=== PATIENT | female | born 1960 | race Caucasian/White ===

== ENCOUNTER → 2016-10-01 | Outpatient (CLI) | payer OTHER ==
[~2016-10-01] MED LIST: ALBUAER2 INH; ATV/1 PO; CALC600T9 PO; CGN1X PO; CLZ100 PO; DSY100 PO; GLC850 PO; LEVO88TA3 PO; LORA-741 PO; MECL1TAB42 PO; MULTTAB58 PO; OXGN; PRT/40 PO; SENNTAB23 PO; SERT-234 PO; SNG10 PO; THIA1TAB11 PO; ZCR40 PO; ZLF/50 PO
[2016-10-01 14:47] LABS: THYROID STIMULATING HORMONE 1.73 uIu/ml (0.300-4.500)
== END | disposition home or self-care (01) ==
LOC: C.LAB1850 13:17
PROVIDERS: ATTEND Internal Medicine Endocrinology, Diabetes & Metabolism
DX: E03.9 Hypothyroidism, unspecified (principal)

== ENCOUNTER → 2016-11-17 | Outpatient (CLI) | payer OTHER ==
[2016-11-17 12:42] LABS: BLOOD UREA NITROGEN 14 mg/dl (7-18); BUN/CREATININE RATIO 14.6 (10-20); CALCIUM 9.3 mg/dl (8.5-10.1); CARBON DIOXIDE 32 mmol/L (21-32); CHLORIDE 95 mmol/L (98-107); CREATININE 0.96 mg/dl (0.60-1.20); GLUCOSE 125 mg/dl (70-99); POTASSIUM 4.1 mmol/L (3.5-5.1); SODIUM 135 mmol/L (136-145)
[2016-11-17 12:54] LABS: ESTIMATED AVERAGE GLUCOSE 154 mg/dl; HA1C FLAG Normal (Normal)
== END | disposition home or self-care (01) ==
LOC: C.LABBFT 09:32
PROVIDERS: ATTEND Internal Medicine Endocrinology, Diabetes & Metabolism
DX: E03.9 Hypothyroidism, unspecified (principal); E11.9 Type 2 diabetes mellitus without complications; R80.9 Proteinuria, unspecified; I10 Essential (primary) hypertension

== ENCOUNTER → 2017-01-19 | Outpatient (CLI) | payer OTHER ==
[~2017-01-19] MED LIST changes: +BENZ-88 PO; -CGN1X PO; +PANT40TA2 PO; -PRT/40 PO
[2017-01-19 13:15] LABS: CHOLESTEROL/HDL RATIO 2.7
== END | disposition home or self-care (01) ==
LOC: C.LABBFT 09:50
PROVIDERS: ATTEND Internal Medicine
DX: E78.5 Hyperlipidemia, unspecified (principal)

== ENCOUNTER → 2017-03-09 | Outpatient (CLI) | payer OTHER ==
[~2017-03-09] MED LIST changes: -BENZ-88 PO; +CGN1X PO; -PANT40TA2 PO; +PRT/40 PO
[2017-03-09 12:50] LABS: THYROID STIMULATING HORMONE 1.2 uIu/ml (0.300-4.500)
[2017-03-09 13:23] LABS: ESTIMATED AVERAGE GLUCOSE 146 mg/dl; HA1C FLAG Normal (Normal)
== END | disposition home or self-care (01) ==
LOC: C.LABBFT 09:22
PROVIDERS: ATTEND Physician Assistant
DX: E11.9 Type 2 diabetes mellitus without complications (principal); E03.9 Hypothyroidism, unspecified

== ENCOUNTER → 2017-06-22 | Outpatient (CLI) | payer OTHER ==
--- NOTE | 2017-06-22 13:24 | DIAGNOSTIC IMAGING REPORT ---
R HIP UNILATERAL 2 VIEWS CLINICAL HISTORY: 56 years-old Female presenting with BILATERAL HIP PAIN. TECHNIQUE: Frontal and frog-leg lateral views of the right hip were obtained. COMPARISON: Correlation made to plain radiographs of the left hip performed the same day and CT from 2014. FINDINGS: No acute fracture or malalignment. Right hip joint congruent. No dense degenerative change. IMPRESSION: No acute osseous injury of the right hip. Electronically signed by: Kal Castro M.D. 06/22/2017 1:22 PM Dictated Date/Time: 06/22/2017 1:20 PM
--- NOTE | 2017-06-22 13:28 | DIAGNOSTIC IMAGING REPORT ---
L HIP UNILATERAL 2 VIEWS CLINICAL HISTORY: 56 years-old Female presenting with BILATERAL HIP PAIN. TECHNIQUE: Frontal and frog-leg lateral views of the left hip were obtained. COMPARISON: Correlation made to plain radiographs of the right hip performed same day and CT from 2014. FINDINGS: Left hip joint congruent. No acute fracture or malalignment. No advanced degenerative change. Regional soft tissues within normal limits. IMPRESSION: No acute osseous injury of the left hip. Electronically signed by: Kal Castro M.D. 06/22/2017 1:27 PM Dictated Date/Time: 06/22/2017 1:26 PM
== END | disposition home or self-care (01) ==
LOC: C.RAD1850 12:50
PROVIDERS: ATTEND Physician Assistant Medical
DX: M25.552 Pain in left hip (principal); M25.551 Pain in right hip

== ENCOUNTER → 2017-06-22 | Outpatient (CLI) | payer OTHER ==
[2017-06-22 12:23] LABS: BASO % 0.3 %; BASO ABS # 0.03 K/uL (0-0.2); COMPLETE YES; EOS % 2.4 %; IG% 0.5 %; LYMPH % 22.9 %; MEAN CORPUSCULAR HEMOGLOBIN 28.7 pg (25-34); MEAN CORPUSCULAR HGB CONC 32.6 g/dl (32-36); MEAN PLATELET VOLUME 9.9 fL (7.4-10.4); MONO % 9.9 %; PLATELET COUNT 314 K/uL (130-400); RED BLOOD COUNT 4.43 M/uL (4.2-5.4)
[2017-06-22 12:40] LABS: ESTIMATED AVERAGE GLUCOSE 163 mg/dl; HA1C FLAG Normal (Normal)
[2017-06-22 13:24] LABS: BLOOD UREA NITROGEN 16 mg/dl (7-18); BUN/CREATININE RATIO 17.6 (10-20); CALCIUM 9.8 mg/dl (8.5-10.1); CARBON DIOXIDE 29 mmol/L (21-32); CHLORIDE 100 mmol/L (98-107); GLUCOSE 139 mg/dl (70-99); POTASSIUM 4.1 mmol/L (3.5-5.1); SODIUM 137 mmol/L (136-145)
== END | disposition home or self-care (01) ==
LOC: C.LAB1850 10:09
PROVIDERS: ATTEND Physician Assistant
DX: E11.9 Type 2 diabetes mellitus without complications (principal); E78.5 Hyperlipidemia, unspecified; E66.01 Morbid (severe) obesity due to excess calories; E87.1 Hypo-osmolality and hyponatremia; I10 Essential (primary) hypertension; F25.9 Schizoaffective disorder, unspecified

== ENCOUNTER → 2017-08-13 | Outpatient (CLI) | payer OTHER ==
[~2017-08-13] MED LIST changes: +BENZ-88 PO; -CGN1X PO; +PANT40TA2 PO; -PRT/40 PO
[2017-08-13 17:28] LABS: CREATININE RANDOM URINE 14.2 mg/dl
[2017-08-13 17:39] LABS: RATIO 81.7 mcg/mg (0-30.0)
== END | disposition home or self-care (01) ==
LOC: C.LABBFT 14:04
PROVIDERS: ATTEND Physician Assistant
DX: E11.9 Type 2 diabetes mellitus without complications (principal)

== ENCOUNTER → 2017-08-17 | Outpatient (CLI) | payer OTHER ==
[2017-08-17 12:35] LABS: THYROID STIMULATING HORMONE 2.1 uIu/ml (0.300-4.500)
== END | disposition home or self-care (01) ==
LOC: C.LABBFT 09:19
PROVIDERS: ATTEND Physician Assistant
DX: E03.9 Hypothyroidism, unspecified (principal)

== ENCOUNTER 2017-08-31 14:58 | Inpatient (IN) | payer OTHER ==
[~2017-08-31] VITALS: Ht 154.9 cm; Wt 129.0 kg
--- NOTE | 2017-08-31 15:51 | EMERGENCY ROOM VISIT NOTE ---
History Report prepared by Carla: Steve Perez Under the Supervision of: Dr. Akin Adam D.O. First contact with patient: 15:15 Chief Complaint: MENTAL HEALTH EVALUATION Stated Complaint: MENTAL ASSESSMENT History of Present Illness The patient is a 57 year old female who presents to the Emergency Room for a mental health evaluation. She is a resident at [facility]. She claims that she "didn't know if he was going to make it through another day there." She believes that everything that she is associated with eventually goes wrong. She then gets extremely upset with herself. The patient reports that she has been having auditory and visual hallucinations that are tormenting her on a daily basis. Endorses left sided abdominal pain and nausea that is intermittent and coincides with her anxiety. Denies dysuria, chest pain, and shortness of breath. She states that she occasionally has a suicidal ideation, but denies any homicidal ideation. Source of History: patient Onset: PV INSTALLER TECH Position: other (Mental Health) Quality: other (Hallucinations) Timing: constant Associated Symptoms: + nausea, + abdominal pain (left sided ), No chest pain , No SOB, No urinary symptoms Note: Pt has suicidal ideation, auditory and visual hallucinations. Denies any homicidal ideation Review of Systems See HPI for pertinent positives & negatives. A total of 10 systems reviewed and were otherwise negative. Past Medical & Surgical Medical Problems: (1) Anxiety (2) GERD (gastroesophageal reflux disease) (3) High cholesterol (4) Paranoid schizophrenia Family History Heart disease Social History Smoking Status: Never Smoker Marital Status: single Housing Status: lives alone Occupation Status: disabled Current/Historical Medications Scheduled Clozapine (Clozapine), 300 MG PO HS Glimepiride (Glimepiride), 1 MG PO DAILY Home O2 Therapy (Oxygen), 2.5 LITERS NA HS Levothyroxine Sodium (Levothyroxine Sodium), 100 MCG PO DAILY Lorazepam (Ativan), 0.5 MG PO UD Lorazepam (Ativan), 1 MG PO HS Montelukast Sod (Montelukast Sodium), 10 MG PO HS Pantoprazole (Pantoprazole Sodium), 40 MG PO DAILY Sertraline HCl (Sertraline HCl), 50 MG PO HS Simvastatin (Simvastatin), 40 MG PO HS Trazodone HCl (Trazodone HCl), 200 MG PO HS Scheduled PRN Meclizine Hcl (Meclizine Hcl), 1 TAB PO TID PRN for DIZZINESS Allergies Coded Allergies: Gardi (Unverified Allergy, Intermediate, GENERALIZED SICKNESS AND BODY ACHES, 08/31/17) Cimetidine (Verified Allergy, Unknown, 08/31/17) Penicillins (Verified Allergy, Unknown, AMOXICILLIN MAKES HER FEEL LIKE SHE'S "GOING OUT OF HER MIND, 08/31/17) Thioridazine (Verified Allergy, Unknown, "GOES OUT OF HER MIND", 08/31/17) Zolpidem (Verified Adverse Reaction, Intermediate, NAUSEA, GENERAL MALAISE , 08/31/17) Physical Exam Vital Signs Date Time Temp Pulse Resp B/P (MAP) Pulse Ox O2 Delivery O2 Flow Rate FiO2 08/31/17 18:21 89 22 118/63 93 Room Air 08/31/17 15:09 36.4 86 18 130/82 94 Room Air Physical Exam GENERAL: Sitting at edge of bed, alert, well appearing, well nourished, no distress, non-toxic EYE EXAM: normal conjunctiva. OROPHARYNX: no exudate, no erythema, lips, buccal mucosa, and tongue normal and mucous membranes are moist NECK: supple, no nuchal rigidity, no adenopathy, non-tender LUNGS: Clear to auscultation. Normal chest wall mechanics HEART: no murmurs, S1 normal and S2 normal ABDOMEN: abdomen soft, non-tender, normo-active bowel sounds, no masses, no rebound or guarding. BACK: Back is symmetrical on inspection and there is no deformity, no midline tenderness, no CVA tenderness. SKIN: no rashes and no bruising UPPER EXTREMITIES: upper extremities are grossly normal. LOWER EXTREMITIES: No pitting edema. NEURO EXAM: Normal sensorium, cranial nerves II-XII grossly intact, normal speech, no gross weakness of arms, no gross weakness of legs. Gross sensation is intact. PSYCH: admits to suicidal ideation with a plan along with auditory and visual hallucinations Medical Decision & Procedures Laboratory Results 08/31/17 15:46 Red Blood Count 4.46, Mean Corpuscular Volume 88.6, Mean Corpuscular Hemoglobin 29.8, Mean Corpuscular Hemoglobin Concent 33.7, Mean Platelet Volume 9.6, Neutrophils (%) (Auto) 64.6, Lymphocytes (%) (Auto) 24.3, Monocytes (%) (Auto) 8.6, Eosinophils (%) (Auto) 2.0, Basophils (%) (Auto) 0.2, Neutrophils # (Auto) 7.06, Lymphocytes # (Auto) 2.65, Monocytes # (Auto) 0.94, Eosinophils # (Auto) 0.22, Basophils # (Auto) 0.02 08/31/17 15:46 Test 08/31/17 15:46 White Blood Count 10.92 K/uL (4.8-10.8) Red Blood Count 4.46 M/uL (4.2-5.4) Hemoglobin 13.3 g/dL (12.0-16.0) Hematocrit 39.5 % (37-47) Mean Corpuscular Volume 88.6 fL (80-100) Mean Corpuscular Hemoglobin 29.8 pg (25-34) Mean Corpuscular Hemoglobin Concent 33.7 g/dl (32-36) Platelet Count 279 K/uL (130-400) Mean Platelet Volume 9.6 fL (7.4-10.4) Neutrophils (%) (Auto) 64.6 % Lymphocytes (%) (Auto) 24.3 % Monocytes (%) (Auto) 8.6 % Eosinophils (%) (Auto) 2.0 % Basophils (%) (Auto) 0.2 % Neutrophils # (Auto) 7.06 K/uL (1.4-6.5) Lymphocytes # (Auto) 2.65 K/uL (1.2-3.4) Monocytes # (Auto) 0.94 K/uL (0.11-0.59) Eosinophils # (Auto) 0.22 K/uL (0-0.5) Basophils # (Auto) 0.02 K/uL (0-0.2) RDW Standard Deviation 45.0 fL (36.4-46.3) RDW Coefficient of Variation 13.9 % (11.5-14.5) Immature Granulocyte % (Auto) 0.3 % Immature Granulocyte # (Auto) 0.03 K/uL (0.00-0.02) Anion Gap 6.0 mmol/L (3-11) Est Creatinine Clear Calc Drug Dose 83.4 ml/min Estimated GFR () 79.0 Estimated GFR (Non- 68.2 BUN/Creatinine Ratio 10.9 (10-20) Calcium Level 9.2 mg/dl (8.5-10.1) Total Bilirubin 0.3 mg/dl (0.2-1) Direct Bilirubin < 0.1 mg/dl (0-0.2) Aspartate Amino Transf (AST/SGOT) 20 U/L (15-37) Alanine Aminotransferase (ALT/SGPT) 28 U/L (12-78) Alkaline Phosphatase 95 U/L (45-117) Total Protein 7.4 gm/dl (6.4-8.2) Albumin 4.0 gm/dl (3.4-5.0) Thyroid Stimulating Hormone (TSH) 2.040 uIu/ml (0.300-4.500) Ethyl Alcohol mg/dL < 3.0 mg/dl (0-3) Laboratory results per my review. ECG Indication: abdominal pain Rate (beats per minute): 85 Rhythm: sinus rhythm Findings: left axis deviation, no ectopy ED Course ED COURSE: Vital signs were reviewed and normal The patients medical record was reviewed The above diagnostic studies were performed and reviewed. ED treatments and interventions as stated above. 1515: The patient was evaluated in room A7. A complete history and physical examination was performed. 1726: I spoke with the caser who will speak to the patient. 1753: I spoke with Kailey, the psych caser, who said that the patient is stable. 1802: The patient will be evaluated by [address] [place] [address] for further management. 1830: Upon reevaluation, the patient is resting. I discussed my findings with the patient and she understands and agrees with the treatment plan. Based on the patients age, coexisting illnesses, exam and lab findings the decision to treat as an inpatient was made. The patient remained stable while under my care. The patient will be transferred to and evaluated by [address] [place] [address] for further management. Medical Decision Differential diagnosis: Etiologies such as mood disorder, infection, hypoglycemia, electrolyte abnormalities, cardiac sources, intracerebral event, toxicologic, neurologic, as well as others were entertained. Patient is a 57-year-old female who is brought in by her vamp maker for making suicidal statements. She doesn't believe that she can live any longer. She does have a plan. Patient has no other complaints. CBC all BMP, LFTs, bilirubin and TSH was unremarkable. Tox and alcohol was negative. UA was negative. Patient was valuated by psychiatry. With the suicidal statements patient was admitted to psychiatry on a 201 with suicidal ideation. Medication Reconcilliation Current Medication List: was personally reviewed by me Blood Pressure Screening Patient's blood pressure: Normal blood pressure Blood pressure disposition: Did not require urgent referral Impression Primary Impression: Acute anxiety Additional Impression: Mood disorder Scribe Attestation The scribe's documentation has been prepared under my direction and personally reviewed by me in its entirety. I confirm that the note above accurately reflects all work, treatment, procedures, and medical decision making performed by me. Departure Information Dispostion Mental Health Acute Care Referrals Porter Nye M.D. (PCP) Patient Instructions [facility] Problem Qualifiers
--- NOTE | 2017-08-31 15:52 | EMERGENCY ROOM VISIT NOTE ---
History First contact with patient: 15:10 Chief Complaint: MENTAL HEALTH EVALUATION Stated Complaint: MENTAL ASSESSMENT History of Present Illness The patient is a 57 year old female with hx of paranoid schizophrenia, anxiety and GERD who presents to the Emergency Room with complaints of RUQ tightness and SI with auditory and visual hallucinations. Was at psych appointment with field case manager and was brought her for concerns of "being afraid to go home" and "not knowing if she was gonna make it". Reports hearing voices telling her to harm herself and seeing things go wrong in her apartment. She has had SI - thinks of taking more ativan. Mood is reported as being up and down (feeling sad and anxious at times). Reports having taken ativan, meclizine and acetaminophen today. Review of Systems see below Constitutional: No fever, No chills Respiratory: No shortness of breath Cardiovascular: No chest pain Abdomen: + pain (RUQ tightness), + nausea Psychiatric: + anxiety, + problem reported (auditory and visual hallucinations) Past Medical/Surgical History Medical Problems: (1) Anxiety (2) GERD (gastroesophageal reflux disease) (3) High cholesterol (4) Paranoid schizophrenia Family History Heart disease Social History Smoking Status: Never Smoker Marital Status: single Housing Status: lives alone Occupation Status: disabled Current/Historical Medications Scheduled Clozapine (Clozapine), 300 MG PO HS Glimepiride (Glimepiride), 1 MG PO DAILY Levothyroxine Sodium (Levothyroxine Sodium), 100 MCG PO DAILY Lorazepam (Ativan), 0.5 MG PO UD Lorazepam (Ativan), 1 MG PO HS Montelukast Sod (Montelukast Sodium), 10 MG PO HS Pantoprazole (Pantoprazole Sodium), 40 MG PO DAILY Sertraline HCl (Sertraline HCl), 50 MG PO HS Simvastatin (Simvastatin), 40 MG PO HS Trazodone HCl (Trazodone HCl), 200 MG PO HS Scheduled PRN Home O2 Therapy (Oxygen), 2.5 LITERS NA UD PRN for Shortness of Breath Meclizine Hcl (Meclizine Hcl), 1 TAB PO TID PRN for DIZZINESS Physical Exam Vital Signs Date Time Temp Pulse Resp B/P (MAP) Pulse Ox O2 Delivery O2 Flow Rate FiO2 08/31/17 15:09 36.4 86 18 130/82 94 Room Air Physical Exam see below General Appearance: no apparent distress Head: normocephalic, atraumatic Eyes: normal inspection Respiratory/Chest: lungs clear, normal breath sounds Cardiovascular: regular rate, rhythm Abdomen / GI: normal bowel sounds, non tender, soft Extremities: normal inspection, + pertinent finding (no pretibial edema) Neurologic/Psych: alert, oriented x 3, + pertinent finding (disoriented thought process; sad affect) Medical Decision & Procedures Laboratory Results 08/31/17 15:46 Red Blood Count 4.46, Mean Corpuscular Volume 88.6, Mean Corpuscular Hemoglobin 29.8, Mean Corpuscular Hemoglobin Concent 33.7, Mean Platelet Volume 9.6, Neutrophils (%) (Auto) 64.6, Lymphocytes (%) (Auto) 24.3, Monocytes (%) (Auto) 8.6, Eosinophils (%) (Auto) 2.0, Basophils (%) (Auto) 0.2, Neutrophils # (Auto) 7.06, Lymphocytes # (Auto) 2.65, Monocytes # (Auto) 0.94, Eosinophils # (Auto) 0.22, Basophils # (Auto) 0.02 08/31/17 15:46 Test 08/31/17 15:46 White Blood Count 10.92 K/uL (4.8-10.8) Red Blood Count 4.46 M/uL (4.2-5.4) Hemoglobin 13.3 g/dL (12.0-16.0) Hematocrit 39.5 % (37-47) Mean Corpuscular Volume 88.6 fL (80-100) Mean Corpuscular Hemoglobin 29.8 pg (25-34) Mean Corpuscular Hemoglobin Concent 33.7 g/dl (32-36) Platelet Count 279 K/uL (130-400) Mean Platelet Volume 9.6 fL (7.4-10.4) Neutrophils (%) (Auto) 64.6 % Lymphocytes (%) (Auto) 24.3 % Monocytes (%) (Auto) 8.6 % Eosinophils (%) (Auto) 2.0 % Basophils (%) (Auto) 0.2 % Neutrophils # (Auto) 7.06 K/uL (1.4-6.5) Lymphocytes # (Auto) 2.65 K/uL (1.2-3.4) Monocytes # (Auto) 0.94 K/uL (0.11-0.59) Eosinophils # (Auto) 0.22 K/uL (0-0.5) Basophils # (Auto) 0.02 K/uL (0-0.2) RDW Standard Deviation 45.0 fL (36.4-46.3) RDW Coefficient of Variation 13.9 % (11.5-14.5) Immature Granulocyte % (Auto) 0.3 % Immature Granulocyte # (Auto) 0.03 K/uL (0.00-0.02) Anion Gap 6.0 mmol/L (3-11) Est Creatinine Clear Calc Drug Dose 83.4 ml/min Estimated GFR () 79.0 Estimated GFR (Non- 68.2 BUN/Creatinine Ratio 10.9 (10-20) Calcium Level 9.2 mg/dl (8.5-10.1) Total Bilirubin 0.3 mg/dl (0.2-1) Direct Bilirubin < 0.1 mg/dl (0-0.2) Aspartate Amino Transf (AST/SGOT) 20 U/L (15-37) Alanine Aminotransferase (ALT/SGPT) 28 U/L (12-78) Alkaline Phosphatase 95 U/L (45-117) Total Protein 7.4 gm/dl (6.4-8.2) Albumin 4.0 gm/dl (3.4-5.0) Thyroid Stimulating Hormone (TSH) 2.040 uIu/ml (0.300-4.500) Ethyl Alcohol mg/dL < 3.0 mg/dl (0-3) ED Course -EKG: NSR with L axis deviation -CMP wnl -CBC with very mild WBC and L shift -Alcohol level < 3 -TSH wnl (2.040) -BS -Clear form a medical stand point to be admitted to psych unit for SI Medical Decision The patient is a 57 year old female with hx of paranoid schizophrenia, anxiety and GERD who presents to the Emergency Room with complaints of RUQ tightness and SI with auditory and visual hallucinations consistent with likely anxiety vs. paranoia consistent with schizophrenia vs cholecystitis vs. OK. -Work up: EKG, CMP, CBC, BSG, UA, alcohol, Drug screen -Will follow up on lab work and manage as indicated -Consider inpatient psych admission given SI Impression Primary Impression: Anxiety Departure Information Referrals Porter Nye M.D. (PCP) Patient Instructions [facility]
[2017-08-31 15:58] LABS: BASO % 0.2 %; BASO ABS # 0.02 K/uL (0-0.2); COMPLETE YES; HEMATOCRIT 39.5 % (37-47); IG% 0.3 %; LYMPH % 24.3 %; LYMPH ABS # 2.65 K/uL (1.2-3.4); MEAN CELL VOLUME 88.6 fL (80-100); MEAN CORPUSCULAR HEMOGLOBIN 29.8 pg (25-34); MEAN CORPUSCULAR HGB CONC 33.7 g/dl (32-36); MEAN PLATELET VOLUME 9.6 fL (7.4-10.4); MONO % 8.6 %; NEUT % 64.6 %; PLATELET COUNT 279 K/uL (130-400); RED BLOOD COUNT 4.46 M/uL (4.2-5.4); WHITE BLOOD COUNT 10.92 K/uL (4.8-10.8)
[2017-08-31 16:21] LABS: ALT/SGPT 28 U/L (12-78); AST/SGOT 20 U/L (15-37); BLOOD UREA NITROGEN 10 mg/dl (7-18); BUN/CREATININE RATIO 10.9 (10-20); CALCIUM 9.2 mg/dl (8.5-10.1); CARBON DIOXIDE 29 mmol/L (21-32); CHLORIDE 99 mmol/L (98-107); CREATININE 0.92 mg/dl (0.60-1.20); GLUCOSE 102 mg/dl (70-99); POTASSIUM 3.8 mmol/L (3.5-5.1); SODIUM 134 mmol/L (136-145)
[2017-08-31 16:32] LABS: ALKALINE PHOSPHATASE 95 U/L (45-117)
[2017-08-31] MEDS ORDERED: GLIM1TAB2 PO (16:37)
[2017-08-31] MEDS ORDERED: ATV/1 PO (16:37)
[2017-08-31] MEDS ORDERED: LEVO100T7 PO (16:37)
[2017-08-31 18:21] VITALS: O2SAT 93
[2017-08-31] MEDS ORDERED: SODIUM CHLORIDE 0.65% NA SOLN 45 ML (OCEAN) PRN (18:30)
[2017-08-31] MEDS ORDERED: ALUMINUM/MAGNESIUM SUSP 30 ML UDC PO PRN (18:30)
[2017-08-31] MEDS ORDERED: hydrOXYzine HCL 25 MG TAB PO PRN ×2 (18:30)
[2017-08-31] MEDS ORDERED: MECLIZINE HCL 25 MG TAB PO PRN (18:30)
[2017-08-31] MEDS ORDERED: BISMUTH SUBSALICYLATE PER ML OMNICELL CHARGE PO PRN (18:30)
[2017-08-31 19:25] LABS: URINE APPEARANCE CLEAR (CLEAR); URINE BILIRUBIN NEG (NEG); URINE COLOR YELLOW; URINE NITRITE NEG (NEG); URINE SPECIFIC GRAVITY 1.006 (1.000-1.030); UROBILINOGEN NEG (NEG)
[2017-08-31 19:29] LABS: MANUAL MICROSCOPIC REQUIRED? NO; REVIEW REQ? NO
[2017-08-31] MEDS ORDERED: OXGN (19:44)
[2017-08-31 19:48] LABS: BENZODIAZEPINE, URINE NEG (NEG); COCAINE,URINE NEG (NEG); PHENCYCLIDINE, URINE NEG (NEG)
[2017-08-31 19:55] VITALS: BP 118/63; PULSE 89; TEMP 36.4; BMI 53.7
[2017-08-31] MEDS ORDERED: LORAZEPAM 1 MG TAB PO PRN (20:45)
[2017-08-31] MEDS ORDERED: CLOZAPINE 100 MG TAB PO SCH (21:00)
[2017-08-31] MEDS: MONTELUKAST SOD 10 MG TAB PO SCH (21:45)
[2017-08-31] MEDS: LORAZEPAM 1 MG TAB PO SCH (21:45)
[2017-08-31] MEDS: SERTRALINE HCL 50 MG TAB PO SCH (21:45)
[2017-08-31] MEDS: TRAZODONE HCL 100 MG TAB PO SCH (21:45)
[2017-08-31] MEDS: SIMVASTATIN 40 MG TAB PO SCH (21:45)
[2017-09-01 05:54] VITALS: Ht 154.9 cm; Wt 129.0 kg
[2017-09-01 06:45] VITALS: BP_SYST 137; BP_SYST 141; BP_DIAS 83; BP_DIAS 84; PULSE 79; PULSE 98; TEMP 36.8
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
[2017-09-01] MEDS: GLIMEPIRIDE 2 MG TAB PO SCH (08:40)
[2017-09-01] MEDS: PANTOprazole SOD 40 MG TAB PO SCH (08:40)
[2017-09-01] MEDS: LEVOTHYROXINE 100 MCG TAB PO SCH (08:40)
[2017-09-01] MEDS: LORAZEPAM 1 MG TAB PO SCH ×2 (12:00→21:21)
[2017-09-01] MEDS: ACETAMINOPHEN 325 MG TAB PO PRN (21:24)
[2017-09-01] MEDS: CLOZAPINE 100 MG TAB PO SCH (21:26)
[2017-09-01] MEDS: TRAZODONE HCL 100 MG TAB PO SCH (21:27)
[2017-09-01] MEDS: MONTELUKAST SOD 10 MG TAB PO SCH (21:27)
[2017-09-01] MEDS: SIMVASTATIN 40 MG TAB PO SCH (21:28)
[2017-09-01] MEDS: SERTRALINE HCL 50 MG TAB PO SCH (21:28)
[2017-09-02 07:01] VITALS: BP_SYST 121; BP_SYST 137; BP_DIAS 84; BP_DIAS 86; PULSE 81; PULSE 86; TEMP 36.8
[2017-09-02] MEDS: LEVOTHYROXINE 100 MCG TAB PO SCH (07:41)
[2017-09-02] MEDS: ACETAMINOPHEN 325 MG TAB PO PRN (07:44)
[2017-09-02 08:29] LABS: CHOLESTEROL/HDL RATIO 3.6
[2017-09-02 08:36] LABS: ESTIMATED AVERAGE GLUCOSE 160 mg/dl; HA1C FLAG Normal (Normal)
[2017-09-02] MEDS: GLIMEPIRIDE 2 MG TAB PO SCH (08:43)
[2017-09-02] MEDS: PANTOprazole SOD 40 MG TAB PO SCH (08:43)
--- NOTE | 2017-09-02 10:08 | Psychiatric Progress Notes ---
Progress Note Date of Service Sep 02, 2017. Interval History Antonietta Almendarez is a 57-year-old female admitted on Aug 31, 2017 at 18:28 who currently lives in [place] at the [facility], has a long mental health history with a diagnosis of schizophrenia, multiple medical conditions including obesity, diabetes, GERD, hypothyroidism, MANDIE, and HLD, and was admitted voluntarily after she was sent in by her psychiatrist, Dr. Wallace, with suicidal thoughts and a plan to overdose on her lorazepam. Chief Complaint "Well I tell you doctor, it was a little scary when I took that extra 50mg of Clozaril...". Subjective Patient was seen & assessed interval progress reviewed with Nursing. Staff report she asked them to give her as much Ativan as possible. She had urinary incontinence again overnight and required staff assistance to change her clothes and bed linens. She spends most of her time in the dayroom socializing with peers. She was unable to rate her mood, and said it was "all over the place." On assessment today, she states she was afraid to take the higher dose of clozapine, but as soon as she took it, she immediately felt better as the voices were diminished. "If you dare to be yourself, you can achieve greatly, something like that that Cristhian Coffey said, those Alexx's are really smart..." She talks excessively, going from topic to topic. She says "I made Dr. Moore mad at me, I shouldn't have done it, asked for Xanax 1mg, she got upset with me, said I can fall or something." She repeatedly interrupts to say she wants to make sure we have enough time to talk, as she has questions, but then then says "no, you ask your questions." She says she wants "a laxative 2-3 times a day, by [employer], orange flavor." She requires a lot of reassurance , "Am I confusing you?" "Are you mad at me?" She reports ongoing AH, but says they are decreased from admission. "They torment me like they do," but can't give further detail. She feels safe here, denies paranoia. She reports good appetite, is eating 75-100% of each meal. Sleep was "very deep and very extraordinary, actually great, terrific, it was good sound sleep." Mood "it goes up and down, I was in a good mood, I was kidding with everyone." She denies SI, and feels safe here. She did not attend most groups, saying she was worried about her personal hygiene and inability to focus. She did go to [facility]. She set a goal to shower and wash her hair, but hasn't done it yet. She doesn't have regular clothes to wear, as the ones she was wearing had a drawstring. Sleep Information Total Hours of Sleep: 5.25 Meal Information Percent of Breakfast Consumed: 75 Percent of Lunch Consumed: 100 Percent of Dinner Consumed: 100 Mental Status Exam During interview pt is: alert and oriented (x 10/10), cooperative Appearance: disheveled, other (Obese, appears significantly older than stated age, wearing 2 hospital gowns) Eye contact is: fair Motor behavior is: no abnormal motor movements, other (walks with walker, slow) Speech: normal in rate, rhythm & volume (excessive) Affect: depressed, anxious Mood is: other ("all over the place") Thought process: circumstantial, concrete Thought content: reality based without delusions Suicidal thought are: denied Homicidal thoughts are: denied Hallucinations: auditory, visual Cognition: language grossly intact, other (attention impaired) Intelligence estimated to be: below average Insight: impaired Judgement: impaired Summary of Past History Records from [facility] reviewed: Diagnosis is schizoaffective disorder (no type specified). Her most recent appointment was on 08/31/2017, and she reported agitation, shakiness, concerns that she did not look good and is physically sick , and wanted to see her PCP. She was tearful, and expressed paranoid delusions , but denied suicidal and homicidal thoughts. No medication changes were made- she was on lorazepam 1 mg at bedtime, 0.5 mg every morning and noon and once daily as needed, sertraline 50 mg daily at bedtime, and trazodone 200 mg daily at bedtime. She requested Xanax, and admitted that she was confused about her Ativan and had been taking more than she was supposed to. She was advised to follow up in 2 months. Prior to that, she was seen in June, and reported doing well on her current medications. Medication Trials patient poor historian, so list incomplete and mostly from old records: risperidone - caused "water blisters" zolpidem - listed as allergy Elavil - can't recall any details mirtazapine quetiapine clozapine carbamazepine lorazepam [place] - listed as an allergy Mellaril - listed as an allergy Impression 57-year-old single white female with a history of chronic schizophrenia and multiple medical problems who presents with worsening psychosis, mood, and suicidal thoughts with a planned overdose on Ativan. She indicates that she has not had medication adjustments in years, and has been resistant to recommendations to increase her clozapine, but after some discussion is willing to do so. She may also benefit from an increase in her sertraline to target mood. She has been overusing Ativan at home, and we will continue her home dose for now while coordinating care with her outpatient psychiatrist. She was independently but is on a wait list for [facility], and we will contact them to clarify process and when she might be able to move and get a higher level of care. She requires inpatient treatment due to the severity of her symptoms and risk for suicide if discharged. Plan (1) Schizoaffective disorder 09/01 - Continue sertraline 50 mg daily, trazodone 200 mg daily at bedtime, and increase clozapine to 350 mg daily at bedtime to target psychosis. Schedule weekly CBCs with differential. - Check fasting lipid profile and hemoglobin A1c for monitoring on the atypical antipsychotic. - every 15 minute checks for safety, work on healthy coping skills and discharge safety plan, with specific plan to address her access to medications, as she has had thoughts to overdose. - Encourage group attendance and participation. - Coordinate with [facility], as she is on a wait list and would like to move there as soon as possible. She would benefit from the increased support. - Coordinate care with her outpatient providers, including her psychiatrist, therapist, case manager specialist, and family law specialist. 09/02 - Continue clozapine 350mg qhs, sertraline 50mg daily, and trazodone 200 mg daily at bedtime. Reporting mixed mood symptoms. AH improved and consider higher dose of clozapine. - Fasting labs reviewed: Hemoglobin A1c elevated at 7.2 (estimated average glucose of 160) disease, fasting lipid profile notable for elevated triglycerides 283. - Meet with director social service and coordinate with [facility] for discharge planning, as she would like to transition to the personal m[facility]p as soon as possible. - Encourage the patient to attend and participate in groups, and to shower and dress in clean clothes. (2) Anxiety 09/01 - could consider increase in sertraline, but patient has asked mood symptoms, so will hold off on this for now. Continue home dose of lorazepam as prescribed by Dr. Rodrigo mcalughlin (0.5 mg daily at noon, 0.5 mg daily when necessary, and 1 mg daily at bedtime). She reported overusing this medication, so consider the need to taper down on it if this is an ongoing problem. (3) Diabetes Continue home medications, monitor blood sugar, and coordinate care with PCP, Dr. Porter Nye. (4) High cholesterol Continue home medications. (5) GERD (gastroesophageal reflux disease) Continue home medications. (6) Hypothyroidism Continue home dose of levothyroxine. TSH on admission was normal. (7) Sleep apnea Patient refuses to use CPAP, so continue home dose of O2 at night. She will require a private room for oxygen tubing, or could cohabitate with a female patient on oxygen. Discharge / Aftercare Planning Primary Care Physician: Name: Dr Nye Therapist: Name: Radha Owens - [facility] Date of Appointment: Sep 08, 2017 Time of Appointment: 1:00 pm Ditching Machine Operator: Name: Charmaine Jeronimo Visit Code E&M Code: 18490 Inventory Assets Strengths: Supportive family, has outpatient providers, willing for treatment Needs: Increased living supports (personal mcfp), improved compliance with medications and understanding of the need for higher doses of medications to target her symptoms Risk Factors Assessment : Yes /single/: Yes Higher / Fall in social status: No Health problems: Yes Mental Health Diagnoses: Yes Substance use disorders: No Previous attempt: Yes Previous attempt;highly lethal: Yes Family history of suicide: Yes Previous psychiatric stay: Yes Hopelessness: Yes Smoker: No Protective Factors Assessment Jewish beliefs: Yes : No Responsible for young children: No Employed: No Stable relationships: Yes Supportive family: Yes Good rapport with provider: Yes Data Vital Signs Last 24 Hrs: Date Time Temp Pulse Resp B/P (MAP) Pulse Ox O2 Delivery O2 Flow Rate FiO2 09/02/17 07:01 36.8 81 18 137/84 86 121/86 Meds Administered Last 24 Hrs: Meds Administered (Past 24Hrs) Medications (Trade) Dose Ordered Sig/Fadi Route Start Time Stop Time Status Last Admin Dose Admin Acetaminophen (Tylenol Tab) 650 mg Q4H PRN PO 08/31/17 18:30 09/30/17 18:29 09/02/17 07:44 650 MG Clozapine (Clozaril Tab) 300 mg HS PO 08/31/17 21:00 09/01/17 11:29 DC 08/31/17 21:45 300 MG Levothyroxine Sodium (Synthroid Tab) 100 mcg DAILYBB PO 09/01/17 07:00 10/01/17 06:59 09/02/17 07:41 100 MCG Lorazepam (Ativan Tab) 1 mg HS PO 08/31/17 21:00 09/30/17 20:59 09/01/17 21:21 1 MG Montelukast Sodium (Singulair Tab) 10 mg HS PO 08/31/17 21:00 09/30/17 20:59 09/01/17 21:27 10 MG Pantoprazole Sodium (Protonix Tab) 40 mg DAILY PO 09/01/17 09:00 10/01/17 08:59 09/02/17 08:43 40 MG Sertraline HCl (Zoloft Tab) 50 mg HS PO 08/31/17 21:00 09/30/17 20:59 09/01/17 21:28 50 MG Simvastatin (Zocor Tab) 40 mg HS PO 08/31/17 21:00 09/30/17 20:59 09/01/17 21:28 40 MG Trazodone HCl (Desyrel Tab) 200 mg HS PO 08/31/17 21:00 09/30/17 20:59 09/01/17 21:27 200 MG Glimepiride (Amaryl Tab) 1 mg DAILY PO 09/01/17 09:00 10/01/17 08:59 09/02/17 08:43 1 MG Lorazepam (Ativan Tab) 0.5 mg DAILY@1200 PO 09/01/17 12:00 10/01/17 11:59 09/01/17 12:00 0.5 MG Clozapine (Clozaril Tab) 350 mg HS PO 09/01/17 22:00 09/30/17 20:59 09/01/17 21:26 350 MG Lab Results Last 24 Hrs: Last 24 Hours Test 09/01/17 16:54 09/02/17 07:35 Bedside Glucose 117 mg/dl Estimated Average Glucose 160 mg/dl Hemoglobin A1c 7.2 % Triglycerides Level 283 mg/dl Cholesterol Level 148 mg/dl HDL Cholesterol 41 mg/dl LDL Cholesterol, Calculated 50 mg/dl VLDL Cholesterol, Calculated 57 mg/dl Cholesterol/HDL Ratio 3.6
[2017-09-02] MEDS: LORAZEPAM 1 MG TAB PO SCH ×2 (12:12→21:22)
[2017-09-02] MEDS: TRAZODONE HCL 100 MG TAB PO SCH (21:24)
[2017-09-02] MEDS: SIMVASTATIN 40 MG TAB PO SCH (21:24)
[2017-09-02] MEDS: MONTELUKAST SOD 10 MG TAB PO SCH (21:24)
[2017-09-02] MEDS: CLOZAPINE 100 MG TAB PO SCH (21:24)
[2017-09-02] MEDS: SERTRALINE HCL 50 MG TAB PO SCH (21:24)
[2017-09-03 06:57] VITALS: BP 146/98; PULSE 86; PULSE 90; TEMP 36.4
[2017-09-03] MEDS: ACETAMINOPHEN 325 MG TAB PO PRN ×3 (07:10→23:22)
[2017-09-03] MEDS: LEVOTHYROXINE 100 MCG TAB PO SCH (08:44)
[2017-09-03] MEDS: PANTOprazole SOD 40 MG TAB PO SCH (08:44)
[2017-09-03] MEDS: GLIMEPIRIDE 2 MG TAB PO SCH (08:45)
[2017-09-03] MEDS: LORAZEPAM 1 MG TAB PO SCH ×2 (12:45→21:39)
--- NOTE | 2017-09-03 12:58 | Psychiatric Progress Notes ---
Progress Note Date of Service Sep 03, 2017. Interval History Antonietta Almendarez is a 57-year-old female admitted on Aug 31, 2017 at 18:28 who currently lives in [place] at the [facility], has a long mental health history with a diagnosis of schizophrenia, multiple medical conditions including obesity, diabetes, GERD, hypothyroidism, MANDIE, and HLD, and was admitted voluntarily after she was sent in by her psychiatrist, Dr. Wallace, with suicidal thoughts and a plan to overdose on her lorazepam. Chief Complaint "oh I'm real good". Subjective Patient was seen & assessed interval progress reviewed with Treatment Team. - Pt slept well, had meeting with lining caser who states she feels patient is now at baseline - Pt tearful on evening shift while discussing her feelings about not seeing her son Pt was seen today to assess progress since admission. She reports is feeling "real good" and has noticed she has been able to focus much better. She reports the voices have decreased and she "hardly hears them at all now." She states "I have the insight back that God gave me." Pt reports that her "nerves " and "worries" are much improved since being on the unit and she is "thinking so much more like Antonietta - like my family knows me to be." Despite patient's optimism, she remains tangential and disorganized in conversation. She feels like she is doing better, but expresses some concerns with returning to the [facility] as she feels the people she lives with gossip too much. Pt reports she is working hard to "change my attitude because that's the first step to helping me get better." Pt states she was able to shower yesterday and she "had to overcome a lot of fears", but feels good about the achievement. She states she has been sleeping and eating well. Review of Systems Psych: denies symptoms other than stated above Constitutional: denied Cardiovascular: denied GI: denied Neurologic: denied Remainder of 10 body systems also reviewed and denied other than noted above. Sleep Information Total Hours of Sleep: 6.00 Meal Information Percent of Breakfast Consumed: 100 Percent of Lunch Consumed: 75 Percent of Dinner Consumed: 100 Mental Status Exam During interview pt is: alert and oriented (x 10/10), cooperative Appearance: disheveled (wearing 2 hospital gowns), other (Obese, older than stated age) Eye contact is: fair Motor behavior is: no abnormal motor movements, other (using wheeled walker for assistance with mobility) Speech: normal in rate, rhythm & volume (excessive) Affect: blunted, anxious Mood is: other ("good") Thought process: circumstantial (frequently switching between conversation topics, but related in content), concrete Thought content: reality based without delusions Suicidal thought are: denied Homicidal thoughts are: denied Hallucinations: auditory (decreased ), visual (decreased) Cognition: language grossly intact, other (attention impaired) Intelligence estimated to be: below average Insight: impaired Judgement: impaired Summary of Past History Records from [facility] reviewed: Diagnosis is schizoaffective disorder (no type specified). Her most recent appointment was on 08/31/2017, and she reported agitation, shakiness, concerns that she did not look good and is physically sick , and wanted to see her PCP. She was tearful, and expressed paranoid delusions , but denied suicidal and homicidal thoughts. No medication changes were made- she was on lorazepam 1 mg at bedtime, 0.5 mg every morning and noon and once daily as needed, sertraline 50 mg daily at bedtime, and trazodone 200 mg daily at bedtime. She requested Xanax, and admitted that she was confused about her Ativan and had been taking more than she was supposed to. She was advised to follow up in 2 months. Prior to that, she was seen in June, and reported doing well on her current medications. Medication Trials patient poor historian, so list incomplete and mostly from old records: risperidone - caused "water blisters" zolpidem - listed as allergy Elavil - can't recall any details mirtazapine quetiapine clozapine carbamazepine lorazepam [place] - listed as an allergy Mellaril - listed as an allergy Impression 57-year-old single white female with a history of chronic schizophrenia and multiple medical problems who presents with worsening psychosis, mood, and suicidal thoughts with a planned overdose on Ativan. She indicates that she has not had medication adjustments in years, and has been resistant to recommendations to increase her clozapine, but after some discussion is willing to do so. She may also benefit from an increase in her sertraline to target mood. She has been overusing Ativan at home, and we will continue her home dose for now while coordinating care with her outpatient psychiatrist. She was independently but is on a wait list for personal skilled nursing, and we will contact them to clarify process and when she might be able to move and get a higher level of care. She requires inpatient treatment due to the severity of her symptoms and risk for suicide if discharged. Plan (1) Schizoaffective disorder 09/01 - Continue sertraline 50 mg daily, trazodone 200 mg daily at bedtime, and increase clozapine to 350 mg daily at bedtime to target psychosis. Schedule weekly CBCs with differential. - Check fasting lipid profile and hemoglobin A1c for monitoring on the atypical antipsychotic. - every 15 minute checks for safety, work on healthy coping skills and discharge safety plan, with specific plan to address her access to medications, as she has had thoughts to overdose. - Encourage group attendance and participation. - Coordinate with [facility], as she is on a wait list and would like to move there as soon as possible. She would benefit from the increased support. - Coordinate care with her outpatient providers, including her psychiatrist, therapist, lining caser, and mortgage loan specialist. 09/02 - Continue clozapine 350mg qhs, sertraline 50mg daily, and trazodone 200 mg daily at bedtime. Reporting mixed mood symptoms. AH improved and consider higher dose of clozapine. - Fasting labs reviewed: Hemoglobin A1c elevated at 7.2 (estimated average glucose of 160) disease, fasting lipid profile notable for elevated triglycerides 283. - Meet with hospice social worker and coordinate with [facility] for discharge planning, as she would like to transition to the personal skilled nursing as soon as possible. - Encourage the patient to attend and participate in groups, and to shower and dress in clean clothes. 09/03 - Continue clozapine 350mg, sertraline 50mg, and trazodone 200mg. Pt states she has been noticing an improvement in her symptoms since admission and voices have nearly been eliminated. - Pt met with lining caser yesterday who reports pt is nearing baseline. - Continue to encourage participation in groups and activities along with appropriate hygiene and bathing. (2) Anxiety 09/01 - could consider increase in sertraline, but patient has asked mood symptoms, so will hold off on this for now. Continue home dose of lorazepam as prescribed by Dr. Rodrigo mclaughlin (0.5 mg daily at noon, 0.5 mg daily when necessary, and 1 mg daily at bedtime). She reported overusing this medication, so consider the need to taper down on it if this is an ongoing problem. 09/03 - She reports improvement in anxiety today. Continue to monitor as evaluate potential to decrease of dose lorazepam if appropriate and symptoms control is sustained. (3) Diabetes Continue home medications, monitor blood sugar, and coordinate care with PCP, Dr. Porter Nye. (4) High cholesterol Continue home medications. (5) GERD (gastroesophageal reflux disease) Continue home medications. (6) Hypothyroidism Continue home dose of levothyroxine. TSH on admission was normal. (7) Sleep apnea Patient refuses to use CPAP, so continue home dose of O2 at night. She will require a private room for oxygen tubing, or could cohabitate with a female patient on oxygen. Discharge / Aftercare Planning Primary Care Physician: Name: Dr Nye Date of Appointment: Sep 24, 2017 Time of Appointment: 11:30 am Appointment Notes: [address] [place] [address] [address] [place] [id number] Psychiatrist: Name: Dr. Alessandro GONZALEZ Date of Appointment: Sep 14, 2017 Time of Appointment: 10:45 am Appointment Notes: [address] [facility] [place] [id number] Therapist: Name: Radha Woodard Date of Appointment: Sep 08, 2017 Time of Appointment: 1:00 pm Appointment Notes: [address] [facility] [place] [id number] Home And School Visitor: Name: Charmaine Jeronimo or [phone] Time of Appointment: weekly Diagnostic Medical Sonographer: Name: Kimberlyn Torres Appointment Notes: scheduled 6 hours per month Visit Code E&M Code: 97567 Inventory Assets Strengths: Supportive family, has outpatient providers, willing for treatment Needs: Increased living supports (personal skilled nursing), improved compliance with medications and understanding of the need for higher doses of medications to target her symptoms Risk Factors Assessment : Yes /single/: Yes Higher / Fall in social status: No Health problems: Yes Mental Health Diagnoses: Yes Substance use disorders: No Previous attempt: Yes Previous attempt;highly lethal: Yes Family history of suicide: Yes Previous psychiatric stay: Yes Hopelessness: Yes Smoker: No Protective Factors Assessment Quaker beliefs: Yes : No Responsible for young children: No Employed: No Stable relationships: Yes Supportive family: Yes Good rapport with provider: Yes Data Vital Signs Last 24 Hrs: Date Time Temp Pulse Resp B/P (MAP) Pulse Ox O2 Delivery O2 Flow Rate FiO2 09/03/17 06:57 36.4 90 18 146/98 86 Meds Administered Last 24 Hrs: Meds Administered (Past 24Hrs) Medications (Trade) Dose Ordered Sig/Fadi Route Start Time Stop Time Status Last Admin Dose Admin Clozapine (Clozaril Tab) 350 mg HS PO 09/01/17 22:00 09/30/17 20:59 09/02/17 21:24 350 MG Lab Results Last 24 Hrs: Last 24 Hours Test 09/02/17 17:43 09/03/17 07:31 Bedside Glucose 99 mg/dl 175 mg/dl
[2017-09-03] MEDS: SIMVASTATIN 40 MG TAB PO SCH (21:41)
[2017-09-03] MEDS: MONTELUKAST SOD 10 MG TAB PO SCH (21:41)
[2017-09-03] MEDS: TRAZODONE HCL 100 MG TAB PO SCH (21:41)
[2017-09-03] MEDS: CLOZAPINE 100 MG TAB PO SCH (21:41)
[2017-09-03] MEDS: SERTRALINE HCL 50 MG TAB PO SCH (21:41)
[2017-09-04] MEDS: MAGNESIUM HYDROXIDE SUSP 30 ML UDC PO PRN (05:46)
[2017-09-04] MEDS: ACETAMINOPHEN 325 MG TAB PO PRN ×2 (05:56→17:20)
[2017-09-04 07:21] VITALS: BP 138/85; PULSE 87; TEMP 36.7
[2017-09-04] MEDS: LEVOTHYROXINE 100 MCG TAB PO SCH (07:27)
[2017-09-04] MEDS: PANTOprazole SOD 40 MG TAB PO SCH (08:25)
[2017-09-04] MEDS: GLIMEPIRIDE 2 MG TAB PO SCH (08:25)
--- NOTE | 2017-09-04 08:44 | Psychiatric Progress Notes ---
Progress Note Date of Service Sep 04, 2017. Interval History Antonietta Almendarez is a 57-year-old female admitted on Aug 31, 2017 at 18:28 who currently lives in [place] at the [facility], has a long mental health history with a diagnosis of schizophrenia, multiple medical conditions including obesity, diabetes, GERD, hypothyroidism, MANDIE, and HLD, and was admitted voluntarily after she was sent in by her psychiatrist, Dr. Wallace, with suicidal thoughts and a plan to overdose on her lorazepam. Chief Complaint "I'm confused. ". Subjective Patient was seen & assessed interval progress reviewed with Treatment Team. The patient is awake early, talking on the phone. Nursing reports that she is connecting with a manic peer, which is serving to provoke her own tangential conversations. She jumps from topic to topic, frequently stopping to make and observation about my appearance of activities in the dayroom. She starts a conversation about family, wanting to heal them all as she feels that they are not together because of traumatic past experiences. She says yes when asked about hallucinations, but when asked to further explain, she talks about crying in the group room about her common law . In talking about potential discharge, she says "I don't want to be alone for the holidays." but will be ready for discharge the day after Xmas. She continues to complain of pain in her left side, minimally improved with tylenol and would like something stronger. She denies SI/hI, saying that her mood is "real good". Review of Systems Constitutional: No fever, No chills, No sweats, No weight loss, No weakness, No fatigue, No problem reported ENT: No hearing loss, No unusual epistaxis, No nasal symptoms, No sore throat, No tinnitus, No dental problems, No trouble swallowing, No problem reported Respiratory: No cough, No sputum, No wheezing, No shortness of breath, No dyspnea on exertion, No dyspnea at rest, No hemoptysis, No problem reported Cardiovascular: No chest pain, No orthopnea, No PND, No edema, No claudication , No palpitations, No problem reported Abdomen: No pain, No nausea, No vomiting, No diarrhea, No constipation, No GI bleeding, No problem reported Musculoskeletal: + problem reported (left sided pain) Neurologic: No memory loss, No paralysis, No weakness, No numbness/tingling, No vertigo, No balance problems, No problem reported Psychiatric: + anxiety Sleep Information Total Hours of Sleep: 3.25 Meal Information Percent of Breakfast Consumed: 100 Percent of Lunch Consumed: 100 Percent of Dinner Consumed: 100 Mental Status Exam During interview pt is: alert and oriented (x 10/10), cooperative Appearance: disheveled (wearing 2 hospital gowns), other (Obese, older than stated age) Eye contact is: good Motor behavior is: no abnormal motor movements, other (using wheeled walker for assistance with mobility) Speech: normal in rate, rhythm & volume (excessive) Affect: blunted, anxious Mood is: other ("good") Thought process: circumstantial (frequently switching between conversation topics, but related in content), tangential, concrete Thought content: reality based without delusions Suicidal thought are: denied Homicidal thoughts are: denied Hallucinations: auditory (decreased ), visual (decreased) Cognition: language grossly intact, other (attention impaired) Intelligence estimated to be: below average Insight: impaired Judgement: impaired Summary of Past History Records from [facility] reviewed: Diagnosis is schizoaffective disorder (no type specified). Her most recent appointment was on 08/31/2017, and she reported agitation, shakiness, concerns that she did not look good and is physically sick , and wanted to see her PCP. She was tearful, and expressed paranoid delusions , but denied suicidal and homicidal thoughts. No medication changes were made- she was on lorazepam 1 mg at bedtime, 0.5 mg every morning and noon and once daily as needed, sertraline 50 mg daily at bedtime, and trazodone 200 mg daily at bedtime. She requested Xanax, and admitted that she was confused about her Ativan and had been taking more than she was supposed to. She was advised to follow up in 2 months. Prior to that, she was seen in June, and reported doing well on her current medications. Medication Trials patient poor historian, so list incomplete and mostly from old records: risperidone - caused "water blisters" zolpidem - listed as allergy Elavil - can't recall any details mirtazapine quetiapine clozapine carbamazepine lorazepam [place] - listed as an allergy Mellaril - listed as an allergy Impression The patient remains tangential and circumstantial and triggered by a manic peer. ADmits that she doesn't want to be home alone for as and would likely bounce if discharged before. Is benefitting from the socialization and assistance with ADL's. Continue current meds. Social service to explore additional home services to assist with showering. Plan (1) Schizoaffective disorder 09/01 - Continue sertraline 50 mg daily, trazodone 200 mg daily at bedtime, and increase clozapine to 350 mg daily at bedtime to target psychosis. Schedule weekly CBCs with differential. - Check fasting lipid profile and hemoglobin A1c for monitoring on the atypical antipsychotic. - every 15 minute checks for safety, work on healthy coping skills and discharge safety plan, with specific plan to address her access to medications, as she has had thoughts to overdose. - Encourage group attendance and participation. - Coordinate with [facility], as she is on a wait list and would like to move there as soon as possible. She would benefit from the increased support. - Coordinate care with her outpatient providers, including her psychiatrist, therapist, disease case manager, and data capture specialist. 09/02 - Continue clozapine 350mg qhs, sertraline 50mg daily, and trazodone 200 mg daily at bedtime. Reporting mixed mood symptoms. AH improved and consider higher dose of clozapine. - Fasting labs reviewed: Hemoglobin A1c elevated at 7.2 (estimated average glucose of 160) disease, fasting lipid profile notable for elevated triglycerides 283. - Meet with addiction social worker and coordinate with [facility] for discharge planning, as she would like to transition to the personal chcf as soon as possible. - Encourage the patient to attend and participate in groups, and to shower and dress in clean clothes. 09/03 - Continue clozapine 350mg, sertraline 50mg, and trazodone 200mg. Pt states she has been noticing an improvement in her symptoms since admission and voices have nearly been eliminated. - Pt met with disease case manager yesterday who reports pt is nearing baseline. - Continue to encourage participation in groups and activities along with appropriate hygiene and bathing. 09/04 - Continue current meds - Encourage/assist with ADL's as needed (2) Anxiety 09/01 - could consider increase in sertraline, but patient has asked mood symptoms, so will hold off on this for now. Continue home dose of lorazepam as prescribed by Dr. Rodrigo mclaughlin (0.5 mg daily at noon, 0.5 mg daily when necessary, and 1 mg daily at bedtime). She reported overusing this medication, so consider the need to taper down on it if this is an ongoing problem. 09/03 - She reports improvement in anxiety today. Continue to monitor as evaluate potential to decrease of dose lorazepam if appropriate and symptoms control is sustained. (3) Diabetes Continue home medications, monitor blood sugar, and coordinate care with PCP, Dr. Porter Nye. (4) High cholesterol Continue home medications. (5) GERD (gastroesophageal reflux disease) Continue home medications. (6) Hypothyroidism Continue home dose of levothyroxine. TSH on admission was normal. (7) Sleep apnea Patient refuses to use CPAP, so continue home dose of O2 at night. She will require a private room for oxygen tubing, or could cohabitate with a female patient on oxygen. Discharge / Aftercare Planning Primary Care Physician: Name: Dr Nye Date of Appointment: Sep 24, 2017 Time of Appointment: 11:30 am Appointment Notes: [address] [place] [address] [address] [id number] Psychiatrist: Name: Dr. Alessandro GONZALEZ Date of Appointment: Sep 14, 2017 Time of Appointment: 10:45 am Appointment Notes: [address] [facility] [id number] Therapist: Name: Radha Woodard Date of Appointment: Sep 08, 2017 Time of Appointment: 1:00 pm Appointment Notes: [address] [facility] [address] [employer] B[employer] Machine Operator: Name: Charmaine Jeronimo or [phone] Time of Appointment: weekly Fruit Cutter: Name: Kimberlyn Torres Appointment Notes: scheduled 6 hours per month Visit Code E&M Code: 43905 Inventory Assets Strengths: Supportive family, has outpatient providers, willing for treatment Needs: Increased living supports (personal chcf), improved compliance with medications and understanding of the need for higher doses of medications to target her symptoms Risk Factors Assessment : Yes /single/: Yes Higher / Fall in social status: No Health problems: Yes Mental Health Diagnoses: Yes Substance use disorders: No Previous attempt: Yes Previous attempt;highly lethal: Yes Family history of suicide: Yes Previous psychiatric stay: Yes Hopelessness: Yes Smoker: No Protective Factors Assessment Mormonism beliefs: Yes : No Responsible for young children: No Employed: No Stable relationships: Yes Supportive family: Yes Good rapport with provider: Yes Data Vital Signs Last 24 Hrs: Date Time Temp Pulse Resp B/P (MAP) Pulse Ox O2 Delivery O2 Flow Rate FiO2 09/04/17 07:21 36.7 87 16 138/85 09/04/17 06:55 Meds Administered Last 24 Hrs: Current Inpatient Medications Medications (Trade) Dose Ordered Sig/Fadi Route Start Time Stop Time Status Last Admin Dose Admin Acetaminophen (Tylenol Tab) 650 mg Q4H PRN PO 08/31/17 18:30 09/30/17 18:29 09/04/17 05:56 650 MG Bismuth Subsalicylate (Kaopectate Liqd) 15 ml PRN PRN PO 08/31/17 18:30 09/30/17 18:29 Al Hydroxide/Mg Hydroxide (Maalox Susp) 30 ml Q4H PRN PO 08/31/17 18:30 09/30/17 18:29 Magnesium Hydroxide (Milk Of Magnesia Susp) 30 ml DAILY PRN PO 08/31/17 18:30 09/30/17 18:29 09/04/17 05:46 30 ML Sodium Chloride ([place] Nasal [place]) PRN PRN NA 08/31/17 18:30 09/30/17 18:29 Hydroxyzine HCl (Vistaril Tab) 50 mg HSZ PRN PO 08/31/17 18:30 09/30/17 18:29 Hydroxyzine HCl (Vistaril Tab) 25 mg Q4H PRN PO 08/31/17 18:30 09/30/17 18:29 Levothyroxine Sodium (Synthroid Tab) 100 mcg DAILYBB PO 09/01/17 07:00 10/01/17 06:59 09/04/17 07:27 100 MCG Lorazepam (Ativan Tab) 1 mg HS PO 08/31/17 21:00 09/30/17 20:59 09/03/17 21:39 1 MG Meclizine HCl (Antivert Tab) 25 mg TID PRN PO 08/31/17 18:30 09/30/17 18:29 Montelukast Sodium (Singulair Tab) 10 mg HS PO 08/31/17 21:00 09/30/17 20:59 09/03/17 21:41 10 MG Pantoprazole Sodium (Protonix Tab) 40 mg DAILY PO 09/01/17 09:00 10/01/17 08:59 09/04/17 08:25 40 MG Sertraline HCl (Zoloft Tab) 50 mg HS PO 08/31/17 21:00 09/30/17 20:59 09/03/17 21:41 50 MG Simvastatin (Zocor Tab) 40 mg HS PO 08/31/17 21:00 09/30/17 20:59 09/03/17 21:41 40 MG Trazodone HCl (Desyrel Tab) 200 mg HS PO 08/31/17 21:00 09/30/17 20:59 09/03/17 21:41 200 MG Glimepiride (Amaryl Tab) 1 mg DAILY PO 09/01/17 09:00 10/01/17 08:59 09/04/17 08:25 1 MG Lorazepam (Ativan Tab) 0.5 mg DAILY@1200 PO 09/01/17 12:00 10/01/17 11:59 09/03/17 12:45 0.5 MG Lorazepam (Ativan Tab) 0.5 mg DAILY PRN PO 08/31/17 20:45 09/30/17 20:44 Clozapine (Clozaril Tab) 350 mg HS PO 09/01/17 22:00 09/30/17 20:59 09/03/17 21:41 350 MG Lab Results Last 24 Hrs: Last 24 Hours Test 09/03/17 17:11 09/04/17 07:35 Bedside Glucose 122 mg/dl 147 mg/dl
--- NOTE | 2017-09-04 09:39 | Psych Management Progress Note ---
Psychiatry Miscellaneous Date of Service: Sep 04, 2017. Patient seen, MS assessed. Rates mood as "good", pretended to be startled. Continues to be overly complimentary to providers. Encouraged cooperation with care and treatment plan as outlined by AILEEN.
[2017-09-04] MEDS ORDERED: NAPROXEN 250 MG TAB PO ONE (09:42)
[2017-09-04] MEDS: LORAZEPAM 1 MG TAB PO SCH ×2 (11:28→21:46)
[2017-09-04] MEDS: CLOZAPINE 100 MG TAB PO SCH (21:46)
[2017-09-04] MEDS: NAPROXEN 250 MG TAB PO SCH (21:47)
[2017-09-04] MEDS: TRAZODONE HCL 100 MG TAB PO SCH (21:47)
[2017-09-04] MEDS: SERTRALINE HCL 50 MG TAB PO SCH (21:48)
[2017-09-04] MEDS: SIMVASTATIN 40 MG TAB PO SCH (21:48)
[2017-09-04] MEDS: MONTELUKAST SOD 10 MG TAB PO SCH (21:48)
[2017-09-05] MEDS: ACETAMINOPHEN 325 MG TAB PO PRN ×2 (04:39→13:12)
[2017-09-05 06:57] VITALS: BP_SYST 139; BP_SYST 145; BP_DIAS 87; BP_DIAS 89; PULSE 85; PULSE 86; TEMP 36.8
[2017-09-05] MEDS: LEVOTHYROXINE 100 MCG TAB PO SCH (07:54)
[2017-09-05] MEDS: GLIMEPIRIDE 2 MG TAB PO SCH (08:20)
[2017-09-05] MEDS: PANTOprazole SOD 40 MG TAB PO SCH (08:21)
[2017-09-05] MEDS: NAPROXEN 250 MG TAB PO SCH ×2 (08:21→21:58)
--- NOTE | 2017-09-05 10:28 | Psychiatric Progress Notes ---
Progress Note Date of Service Sep 05, 2017. Interval History Antonietta Almendarez is a 57-year-old female admitted on Aug 31, 2017 at 18:28 who currently lives in [place] at the [facility], has a long mental health history with a diagnosis of schizophrenia, multiple medical conditions including obesity, diabetes, GERD, hypothyroidism, MANDIE, and HLD, and was admitted voluntarily after she was sent in by her psychiatrist, Dr. Wallace, with suicidal thoughts and a plan to overdose on her lorazepam. Chief Complaint "Real, real good.". Subjective Patient was seen & assessed interval progress reviewed with Treatment Team. The patient says that she has a lot to talk about today, but can't remember it all. She reports having visits from a hydrography teacher and his , as well as her sister, which made her feel supported. She is "facing my fears" about showering and getting things from the fridge herself, as she has worried those things would cause pain or falls. She is worried about not being ready for discharge this week, but the things she feels yet need to be dealt with, are things like a visit from her son, and a GI consultation to evaluate why she can' t lose weight. She says that she has few resources at home including people to take her to the grocery store. She relies on her male friend to go to the [employer] to get her food, which she admits is not healthy. She says that her mood is good, and denies aud/vis hallucinations again today. She denies SI/ HI and feels that the extra 50 mg. of Clozaril has really helped to make her feel "better, calmer". Review of Systems Constitutional: No fever, No chills, No sweats, No weight loss, No weakness, No fatigue, No problem reported ENT: No hearing loss, No unusual epistaxis, No nasal symptoms, No sore throat, No tinnitus, No dental problems, No trouble swallowing, No problem reported Respiratory: No cough, No sputum, No wheezing, No shortness of breath, No dyspnea on exertion, No dyspnea at rest, No hemoptysis, No problem reported Cardiovascular: No chest pain, No orthopnea, No PND, No edema, No claudication , No palpitations, No problem reported Abdomen: No pain, No nausea, No vomiting, No diarrhea, No constipation, No GI bleeding, No problem reported Musculoskeletal: + problem reported (walks with a walker) Neurologic: No memory loss, No paralysis, No weakness, No numbness/tingling, No vertigo, No balance problems, No problem reported Psychiatric: + depression symptoms (improving) Integumentary: No rash, No itch, No new/changing skin lesions, No color change , No bleeding, No problem reported Sleep Information Total Hours of Sleep: 4.00 Meal Information Percent of Breakfast Consumed: 100 Percent of Lunch Consumed: 100 Percent of Dinner Consumed: 100 Mental Status Exam During interview pt is: alert and oriented (x 10/10), cooperative Appearance: appropriately dressed (in gowns), appropriately groomed Eye contact is: good Motor behavior is: no abnormal motor movements, other (using wheeled walker for assistance with mobility) Speech: normal in rate, rhythm & volume (excessive) Affect: blunted, anxious Mood is: other ("real, real good") Thought process: circumstantial (frequently switching between conversation topics, but related in content), tangential, concrete Thought content: reality based without delusions Suicidal thought are: denied Homicidal thoughts are: denied Hallucinations: auditory (decreased ), visual (decreased) Cognition: language grossly intact, other (attention impaired) Intelligence estimated to be: below average Insight: impaired Judgement: impaired Summary of Past History Records from [facility] reviewed: Diagnosis is schizoaffective disorder (no type specified). Her most recent appointment was on 08/31/2017, and she reported agitation, shakiness, concerns that she did not look good and is physically sick , and wanted to see her PCP. She was tearful, and expressed paranoid delusions , but denied suicidal and homicidal thoughts. No medication changes were made- she was on lorazepam 1 mg at bedtime, 0.5 mg every morning and noon and once daily as needed, sertraline 50 mg daily at bedtime, and trazodone 200 mg daily at bedtime. She requested Xanax, and admitted that she was confused about her Ativan and had been taking more than she was supposed to. She was advised to follow up in 2 months. Prior to that, she was seen in June, and reported doing well on her current medications. Medication Trials patient poor historian, so list incomplete and mostly from old records: risperidone - caused "water blisters" zolpidem - listed as allergy Elavil - can't recall any details mirtazapine quetiapine clozapine carbamazepine lorazepam [place] - listed as an allergy Mellaril - listed as an allergy Impression The patient remains tangential and circumstantial, but reports feeling much improved over admission. She is hesitant when thinking about discharge, wanting people to visit her here, which I explained can happen at home. We will need to be sure that she has maximum amounts of in home help upon discharge and a means to get back to [place] where her friends are, as she does well with social support. Plan (1) Schizoaffective disorder 09/01 - Continue sertraline 50 mg daily, trazodone 200 mg daily at bedtime, and increase clozapine to 350 mg daily at bedtime to target psychosis. Schedule weekly CBCs with differential. - Check fasting lipid profile and hemoglobin A1c for monitoring on the atypical antipsychotic. - every 15 minute checks for safety, work on healthy coping skills and discharge safety plan, with specific plan to address her access to medications, as she has had thoughts to overdose. - Encourage group attendance and participation. - Coordinate with [facility], as she is on a wait list and would like to move there as soon as possible. She would benefit from the increased support. - Coordinate care with her outpatient providers, including her psychiatrist, therapist, skilled nursing case manager, and streaming media specialist. 09/02 - Continue clozapine 350mg qhs, sertraline 50mg daily, and trazodone 200 mg daily at bedtime. Reporting mixed mood symptoms. AH improved and consider higher dose of clozapine. - Fasting labs reviewed: Hemoglobin A1c elevated at 7.2 (estimated average glucose of 160) disease, fasting lipid profile notable for elevated triglycerides 283. - Meet with social services aide and coordinate with [facility] for discharge planning, as she would like to transition to the personal retirement as soon as possible. - Encourage the patient to attend and participate in groups, and to shower and dress in clean clothes. 09/03 - Continue clozapine 350mg, sertraline 50mg, and trazodone 200mg. Pt states she has been noticing an improvement in her symptoms since admission and voices have nearly been eliminated. - Pt met with skilled nursing case manager yesterday who reports pt is nearing baseline. - Continue to encourage participation in groups and activities along with appropriate hygiene and bathing. 09/04 - Continue current meds - Encourage/assist with ADL's as needed 09/05 - Continue current meds - Next CBCD 09/07 (2) Anxiety 09/01 - could consider increase in sertraline, but patient has asked mood symptoms, so will hold off on this for now. Continue home dose of lorazepam as prescribed by Dr. Rodrigo mclaughlin (0.5 mg daily at noon, 0.5 mg daily when necessary, and 1 mg daily at bedtime). She reported overusing this medication, so consider the need to taper down on it if this is an ongoing problem. 09/03 - She reports improvement in anxiety today. Continue to monitor as evaluate potential to decrease of dose lorazepam if appropriate and symptoms control is sustained. (3) Diabetes Continue home medications, monitor blood sugar, and coordinate care with PCP, Dr. Porter Nye. (4) High cholesterol Continue home medications. (5) GERD (gastroesophageal reflux disease) Continue home medications. (6) Hypothyroidism Continue home dose of levothyroxine. TSH on admission was normal. (7) Sleep apnea Patient refuses to use CPAP, so continue home dose of O2 at night. She will require a private room for oxygen tubing, or could cohabitate with a female patient on oxygen. Discharge / Aftercare Planning Primary Care Physician: Name: Dr Nye Date of Appointment: Sep 24, 2017 Time of Appointment: 11:30 am Appointment Notes: [address] [place] [address] [address] [id number] Psychiatrist: Name: Dr. Alessandro GONZALEZ Date of Appointment: Sep 14, 2017 Time of Appointment: 10:45 am Appointment Notes: [address] [facility] [employer] [facility] [place] [id number] Therapist: Name: Radha DODD Melvin Woodard Date of Appointment: Sep 08, 2017 Time of Appointment: 1:00 pm Appointment Notes: [address] [facility] [employer] [facility] [place] [id number] School Bus Driver: Name: Charmaine Jeronimo or [phone] Time of Appointment: weekly Rope Machine Setter: Name: Kimberlyn Torres Appointment Notes: scheduled 6 hours per month Visit Code E&M Code: 34179 Inventory Assets Strengths: Supportive family, has outpatient providers, willing for treatment Needs: Increased living supports (personal retirement), improved compliance with medications and understanding of the need for higher doses of medications to target her symptoms Risk Factors Assessment : Yes /single/: Yes Higher / Fall in social status: No Health problems: Yes Mental Health Diagnoses: Yes Substance use disorders: No Previous attempt: Yes Previous attempt;highly lethal: Yes Family history of suicide: Yes Previous psychiatric stay: Yes Hopelessness: Yes Smoker: No Protective Factors Assessment Sikhism beliefs: Yes : No Responsible for young children: No Employed: No Stable relationships: Yes Supportive family: Yes Good rapport with provider: Yes Data Vital Signs Last 24 Hrs: Date Time Temp Pulse Resp B/P (MAP) Pulse Ox O2 Delivery O2 Flow Rate FiO2 09/05/17 06:57 36.8 86 18 145/89 85 139/87 Meds Administered Last 24 Hrs: Meds Administered (Past 24Hrs) Medications (Trade) Dose Ordered Sig/Fadi Route Start Time Stop Time Status Last Admin Dose Admin Naproxen (Naprosyn Tab) 250 mg BID PO 09/04/17 22:00 09/06/17 23:00 09/05/17 08:21 250 MG Naproxen (Naprosyn Tab) 250 mg 0942 ONCE PO 09/04/17 09:42 09/04/17 09:52 DC 09/04/17 10:07 250 MG Lab Results Last 24 Hrs: Last 24 Hours Test 09/04/17 17:11 09/05/17 07:06 Bedside Glucose 144 mg/dl 172 mg/dl
[2017-09-05] MEDS: LORAZEPAM 1 MG TAB PO SCH ×2 (12:08→21:56)
[2017-09-05] MEDS: NYSTATIN CR 15 GM TUBE EXT PRN (13:12)
[2017-09-05] MEDS: SERTRALINE HCL 50 MG TAB PO SCH (21:57)
[2017-09-05] MEDS: MONTELUKAST SOD 10 MG TAB PO SCH (21:58)
[2017-09-05] MEDS: SIMVASTATIN 40 MG TAB PO SCH (21:58)
[2017-09-05] MEDS: TRAZODONE HCL 100 MG TAB PO SCH (21:59)
[2017-09-05] MEDS: CLOZAPINE 100 MG TAB PO SCH (21:59)
[2017-09-06] MEDS: ACETAMINOPHEN 325 MG TAB PO PRN (00:26)
[2017-09-06 06:44] VITALS: BP_SYST 125; BP_SYST 145; BP_DIAS 82; BP_DIAS 88; PULSE 82; PULSE 86; TEMP 36.6
[2017-09-06] MEDS: LEVOTHYROXINE 100 MCG TAB PO SCH (08:12)
[2017-09-06] MEDS: GLIMEPIRIDE 2 MG TAB PO SCH (08:12)
[2017-09-06] MEDS: NAPROXEN 250 MG TAB PO SCH ×2 (08:14→22:02)
[2017-09-06] MEDS: PANTOprazole SOD 40 MG TAB PO SCH (08:14)
[2017-09-06] MEDS: LORAZEPAM 1 MG TAB PO SCH ×2 (11:50→22:02)
[2017-09-06] MEDS: NYSTATIN CR 15 GM TUBE EXT PRN (14:11)
--- NOTE | 2017-09-06 17:36 | Psychiatric Progress Notes ---
Progress Note Date of Service Sep 06, 2017. Interval History Antonietta Almendarez is a 57-year-old female admitted on Aug 31, 2017 at 18:28 who currently lives in [place] at the [facility], has a long mental health history with a diagnosis of schizophrenia, multiple medical conditions including obesity, diabetes, GERD, hypothyroidism, MANDIE, and HLD, and was admitted voluntarily after she was sent in by her psychiatrist, Dr. Wallace, with suicidal thoughts and a plan to overdose on her lorazepam. Chief Complaint "I don't think that I'll be ready to go tomorrow. ". Subjective Patient was seen & assessed interval progress reviewed with nursing. The patient is upset today about some visits with friends and her sister. She is upset that they brought her sweets as a gift, "they know I shouldn't have that stuff". She is additionally upset with her sister for not purchasing a brush that the patient wanted to give to her roommate. She has not yet had a visit from her son and wants to see him before she leaves the hospital. She is worried about the possibility of going home tomorrow, feeling that she doesn't have enough help at home to shower or care for herself. She still feels that having increased her Clozaril has been good and she reports a good mood, denies SI/HI, denies aud/vis hallucinations. We talk at length about remaining grounded an focused on her own needs, remembering that she cannot control others , only herself. Her conversation is rambling and disjointed. Review of Systems Constitutional: No fever, No chills, No sweats, No weight loss, No weakness, No fatigue, No problem reported ENT: No hearing loss, No unusual epistaxis, No nasal symptoms, No sore throat, No tinnitus, No dental problems, No trouble swallowing, No problem reported Respiratory: No cough, No sputum, No wheezing, No shortness of breath, No dyspnea on exertion, No dyspnea at rest, No hemoptysis, No problem reported Cardiovascular: No chest pain, No orthopnea, No PND, No edema, No claudication , No palpitations, No problem reported Abdomen: No pain, No nausea, No vomiting, No diarrhea, No constipation, No GI bleeding, No problem reported Musculoskeletal: + problem reported (walks with a walker for stabilify) Neurologic: No memory loss, No paralysis, No weakness, No numbness/tingling, No vertigo, No balance problems, No problem reported Psychiatric: + anxiety Integumentary: No rash, No itch, No new/changing skin lesions, No color change , No bleeding, No problem reported Sleep Information Total Hours of Sleep: 4.75 Meal Information Percent of Breakfast Consumed: 100 Percent of Lunch Consumed: 80 Percent of Dinner Consumed: 100 Mental Status Exam During interview pt is: alert and oriented (x 10/10), cooperative Appearance: appropriately dressed (in gowns), appropriately groomed Eye contact is: good Motor behavior is: no abnormal motor movements, other (using wheeled walker for assistance with mobility) Speech: normal in rate, rhythm & volume (excessive) Affect: blunted, anxious Mood is: other ("real, real good") Thought process: circumstantial (frequently switching between conversation topics, but related in content), tangential, concrete Thought content: reality based without delusions Suicidal thought are: denied Homicidal thoughts are: denied Hallucinations: auditory (decreased ), visual (decreased) Cognition: language grossly intact, other (attention impaired) Intelligence estimated to be: below average Insight: impaired Judgement: impaired Summary of Past History Records from [facility] reviewed: Diagnosis is schizoaffective disorder (no type specified). Her most recent appointment was on 08/31/2017, and she reported agitation, shakiness, concerns that she did not look good and is physically sick , and wanted to see her PCP. She was tearful, and expressed paranoid delusions , but denied suicidal and homicidal thoughts. No medication changes were made- she was on lorazepam 1 mg at bedtime, 0.5 mg every morning and noon and once daily as needed, sertraline 50 mg daily at bedtime, and trazodone 200 mg daily at bedtime. She requested Xanax, and admitted that she was confused about her Ativan and had been taking more than she was supposed to. She was advised to follow up in 2 months. Prior to that, she was seen in June, and reported doing well on her current medications. Medication Trials patient poor historian, so list incomplete and mostly from old records: risperidone - caused "water blisters" zolpidem - listed as allergy Elavil - can't recall any details mirtazapine quetiapine clozapine carbamazepine lorazepam [place] - listed as an allergy Mellaril - listed as an allergy Impression The patient remains tangential and circumstantial. During her hospital stay she has presented as very dependent, asking for assistance with most everything , including getting items out of the fridge. She has remained in hospital gowns the entire stay and seems to enjoy her position as patient. The reasons she gives for not feeling ready for discharge are social in nature, ie wanting a visit from her son, and her outsole caser says that she is at baseline. Tomorrow we will make any final arrangements for in home support, but anticipate discharge at that time. Plan (1) Schizoaffective disorder 09/01 - Continue sertraline 50 mg daily, trazodone 200 mg daily at bedtime, and increase clozapine to 350 mg daily at bedtime to target psychosis. Schedule weekly CBCs with differential. - Check fasting lipid profile and hemoglobin A1c for monitoring on the atypical antipsychotic. - every 15 minute checks for safety, work on healthy coping skills and discharge safety plan, with specific plan to address her access to medications, as she has had thoughts to overdose. - Encourage group attendance and participation. - Coordinate with [facility], as she is on a wait list and would like to move there as soon as possible. She would benefit from the increased support. - Coordinate care with her outpatient providers, including her psychiatrist, therapist, outsole caser, and psychological operations specialist. 09/02 - Continue clozapine 350mg qhs, sertraline 50mg daily, and trazodone 200 mg daily at bedtime. Reporting mixed mood symptoms. AH improved and consider higher dose of clozapine. - Fasting labs reviewed: Hemoglobin A1c elevated at 7.2 (estimated average glucose of 160) disease, fasting lipid profile notable for elevated triglycerides 283. - Meet with medical social worker and coordinate with [facility] for discharge planning, as she would like to transition to the personal [facility] as soon as possible. - Encourage the patient to attend and participate in groups, and to shower and dress in clean clothes. 09/03 - Continue clozapine 350mg, sertraline 50mg, and trazodone 200mg. Pt states she has been noticing an improvement in her symptoms since admission and voices have nearly been eliminated. - Pt met with outsole caser yesterday who reports pt is nearing baseline. - Continue to encourage participation in groups and activities along with appropriate hygiene and bathing. 09/04 - Continue current meds - Encourage/assist with ADL's as needed 09/05 - Continue current meds - Next CBCD 09/07 09/06 - Continue current meds and plan. (2) Anxiety 09/01 - could consider increase in sertraline, but patient has asked mood symptoms, so will hold off on this for now. Continue home dose of lorazepam as prescribed by Dr. Rodrigo mclaughlin (0.5 mg daily at noon, 0.5 mg daily when necessary, and 1 mg daily at bedtime). She reported overusing this medication, so consider the need to taper down on it if this is an ongoing problem. 09/03 - She reports improvement in anxiety today. Continue to monitor as evaluate potential to decrease of dose lorazepam if appropriate and symptoms control is sustained. (3) Diabetes Continue home medications, monitor blood sugar, and coordinate care with PCP, Dr. Porter Nye. (4) High cholesterol Continue home medications. (5) GERD (gastroesophageal reflux disease) Continue home medications. (6) Hypothyroidism Continue home dose of levothyroxine. TSH on admission was normal. (7) Sleep apnea Patient refuses to use CPAP, so continue home dose of O2 at night. She will require a private room for oxygen tubing, or could cohabitate with a female patient on oxygen. Discharge / Aftercare Planning Primary Care Physician: Name: Dr Nye Date of Appointment: Sep 24, 2017 Time of Appointment: 11:30 am Appointment Notes: [address] [place] [address] [address] [place] [id number] Psychiatrist: Name: Dr. Alessandro GONZALEZ Date of Appointment: Sep 14, 2017 Time of Appointment: 10:45 am Appointment Notes: [address] [facility] [place] [id number] Therapist: Name: Radha Woodard Date of Appointment: Sep 08, 2017 Time of Appointment: 1:00 pm Appointment Notes: [address] [facility] [place] [id number] Finished Garment Inspector: Name: Charmaine Jeronimo or [phone] Time of Appointment: weekly Etl Developer: Name: Kimberlyn Torres Appointment Notes: scheduled 6 hours per month Visit Code E&M Code: 39369 Inventory Assets Strengths: Supportive family, has outpatient providers, willing for treatment Needs: Increased living supports (personal [facility]), improved compliance with medications and understanding of the need for higher doses of medications to target her symptoms Risk Factors Assessment : Yes /single/: Yes Higher / Fall in social status: No Health problems: Yes Mental Health Diagnoses: Yes Substance use disorders: No Previous attempt: Yes Previous attempt;highly lethal: Yes Family history of suicide: Yes Previous psychiatric stay: Yes Hopelessness: Yes Smoker: No Protective Factors Assessment [employer] beliefs: Yes : No Responsible for young children: No Employed: No Stable relationships: Yes Supportive family: Yes Good rapport with provider: Yes Data Vital Signs Last 24 Hrs: Date Time Temp Pulse Resp B/P (MAP) Pulse Ox O2 Delivery O2 Flow Rate FiO2 09/06/17 06:44 36.6 82 16 125/82 86 145/88 Meds Administered Last 24 Hrs: Meds Administered (Past 24Hrs) Medications (Trade) Dose Ordered Sig/Fadi Route Start Time Stop Time Status Last Admin Dose Admin Naproxen (Naprosyn Tab) 250 mg BID PO 09/04/17 22:00 09/06/17 23:00 09/06/17 08:14 250 MG Nystatin (Mycostatin Crm) 1 appln DAILY PRN EXT 09/05/17 10:45 10/05/17 10:44 09/06/17 14:11 1 APPLN Lab Results Last 24 Hrs: Last 24 Hours Test 09/06/17 08:08 09/06/17 16:17 Bedside Glucose 143 mg/dl 126 mg/dl
[2017-09-06] MEDS: SIMVASTATIN 40 MG TAB PO SCH (22:02)
[2017-09-06] MEDS: CLOZAPINE 100 MG TAB PO SCH (22:02)
[2017-09-06] MEDS: SERTRALINE HCL 50 MG TAB PO SCH (22:02)
[2017-09-06] MEDS: TRAZODONE HCL 100 MG TAB PO SCH (22:02)
[2017-09-06] MEDS: MONTELUKAST SOD 10 MG TAB PO SCH (22:02)
[2017-09-07] MEDS: ACETAMINOPHEN 325 MG TAB PO PRN (02:02)
[2017-09-07 06:43] VITALS: BP_SYST 137; BP_SYST 144; BP_DIAS 83; BP_DIAS 90; PULSE 92; PULSE 93; TEMP 36.6
[2017-09-07 08:02] LABS: BASO % 0.4 %; BASO ABS # 0.04 K/uL (0-0.2); COMPLETE YES; EOS % 2.1 %; HEMATOCRIT 40.5 % (37-47); IG% 0.3 %; LYMPH % 23.1 %; LYMPH ABS # 2.08 K/uL (1.2-3.4); MEAN CELL VOLUME 89.8 fL (80-100); MEAN CORPUSCULAR HEMOGLOBIN 30.8 pg (25-34); MEAN CORPUSCULAR HGB CONC 34.3 g/dl (32-36); MEAN PLATELET VOLUME 9.6 fL (7.4-10.4); NEUT % 65.1 %; PLATELET COUNT 296 K/uL (130-400); RED BLOOD COUNT 4.51 M/uL (4.2-5.4)
[2017-09-07] MEDS: LEVOTHYROXINE 100 MCG TAB PO SCH (08:37)
--- NOTE | 2017-09-07 08:57 | Psychiatric Progress Notes ---
Progress Note Date of Service Sep 07, 2017. Interval History Antonietta Almendarez is a 57-year-old female admitted on Aug 31, 2017 at 18:28 who currently lives in [place] at the [facility], has a long mental health history with a diagnosis of schizophrenia, multiple medical conditions including obesity, diabetes, GERD, hypothyroidism, MANDIE, and HLD, and was admitted voluntarily after she was sent in by her psychiatrist, Dr. Wallace, with suicidal thoughts and a plan to overdose on her lorazepam. Chief Complaint "I'm lonely". Subjective Patient was seen & assessed interval progress reviewed with Treatment Team. Patient more upset yesterday as [place] and reports not seeing her son for 3 years. Tends to find fault with those who visit and was invited to a family gathering this pm but declined invitation. She seems to lose her train of thought at times as becomes anxious/overwhelmed but by all counts nearing baseline. Attending to self care, complains of some yeast in skin folds under breasts--using cream. Review of Systems Psych: denies symptoms other than stated above Constitutional: some lumbar discomfort Cardiovascular: denied GI: denied Neurologic: denied Remainder of 10 body systems also reviewed and denied other than noted above. Sleep Information Total Hours of Sleep: 3.50 Meal Information Percent of Breakfast Consumed: 100 Percent of Lunch Consumed: 80 Percent of Dinner Consumed: 100 Mental Status Exam During interview pt is: alert and oriented, cooperative Appearance: appropriately dressed, appropriately groomed Eye contact is: good Motor behavior is: no abnormal motor movements, other (using wheeled walker for assistance with mobility) Speech: normal in rate, rhythm & volume (excessive) Affect: anxious Mood is: other ("overwhelmed at times") Thought process: circumstantial (frequently switching between conversation topics, but related in content), concrete Thought content: reality based without delusions Suicidal thought are: denied Homicidal thoughts are: denied Hallucinations: denies auditory, denies visual Cognition: language grossly intact, other (attention impaired) Intelligence estimated to be: below average Insight: limited Judgement: limited Summary of Past History Records from [facility] reviewed: Diagnosis is schizoaffective disorder (no type specified). Her most recent appointment was on 08/31/2017, and she reported agitation, shakiness, concerns that she did not look good and is physically sick , and wanted to see her PCP. She was tearful, and expressed paranoid delusions , but denied suicidal and homicidal thoughts. No medication changes were made- she was on lorazepam 1 mg at bedtime, 0.5 mg every morning and noon and once daily as needed, sertraline 50 mg daily at bedtime, and trazodone 200 mg daily at bedtime. She requested Xanax, and admitted that she was confused about her Ativan and had been taking more than she was supposed to. She was advised to follow up in 2 months. Prior to that, she was seen in June, and reported doing well on her current medications. Medication Trials patient poor historian, so list incomplete and mostly from old records: risperidone - caused "water blisters" zolpidem - listed as allergy Elavil - can't recall any details mirtazapine quetiapine clozapine carbamazepine lorazepam [place] - listed as an allergy Mellaril - listed as an allergy Impression difficult day yesterday due to holiday and anticipation of discharge Plan (1) Schizoaffective disorder 09/01 - Continue sertraline 50 mg daily, trazodone 200 mg daily at bedtime, and increase clozapine to 350 mg daily at bedtime to target psychosis. Schedule weekly CBCs with differential. - Check fasting lipid profile and hemoglobin A1c for monitoring on the atypical antipsychotic. - every 15 minute checks for safety, work on healthy coping skills and discharge safety plan, with specific plan to address her access to medications, as she has had thoughts to overdose. - Encourage group attendance and participation. - Coordinate with [facility], as she is on a wait list and would like to move there as soon as possible. She would benefit from the increased support. - Coordinate care with her outpatient providers, including her psychiatrist, therapist, case coordinator, and automation specialist. 09/02 - Continue clozapine 350mg qhs, sertraline 50mg daily, and trazodone 200 mg daily at bedtime. Reporting mixed mood symptoms. AH improved and consider higher dose of clozapine. - Fasting labs reviewed: Hemoglobin A1c elevated at 7.2 (estimated average glucose of 160) disease, fasting lipid profile notable for elevated triglycerides 283. - Meet with social media manager and coordinate with [facility] for discharge planning, as she would like to transition to the [facility] as soon as possible. - Encourage the patient to attend and participate in groups, and to shower and dress in clean clothes. 09/03 - Continue clozapine 350mg, sertraline 50mg, and trazodone 200mg. Pt states she has been noticing an improvement in her symptoms since admission and voices have nearly been eliminated. - Pt met with case coordinator yesterday who reports pt is nearing baseline. - Continue to encourage participation in groups and activities along with appropriate hygiene and bathing. 09/04 - Continue current meds - Encourage/assist with ADL's as needed 09/05 - Continue current meds - Next CBCD 09/07 09/06 - Continue current meds and plan. 09/07 -cbc reviewed. (2) Anxiety 09/01 - could consider increase in sertraline, but patient has asked mood symptoms, so will hold off on this for now. Continue home dose of lorazepam as prescribed by Dr. Rodrigo mclaughlin (0.5 mg daily at noon, 0.5 mg daily when necessary, and 1 mg daily at bedtime). She reported overusing this medication, so consider the need to taper down on it if this is an ongoing problem. 09/03 - She reports improvement in anxiety today. Continue to monitor as evaluate potential to decrease of dose lorazepam if appropriate and symptoms control is sustained. (3) Diabetes Continue home medications, monitor blood sugar, and coordinate care with PCP, Dr. Porter Nye. (4) High cholesterol Continue home medications. (5) GERD (gastroesophageal reflux disease) Continue home medications. (6) Hypothyroidism Continue home dose of levothyroxine. TSH on admission was normal. (7) Sleep apnea Patient refuses to use CPAP, so continue home dose of O2 at night. She will require a private room for oxygen tubing, or could cohabitate with a female patient on oxygen. Discharge / Aftercare Planning Primary Care Physician: Name: Dr Nye Date of Appointment: Sep 24, 2017 Time of Appointment: 11:30 am Appointment Notes: [address] [place] [address] [address] [place] [id number] Psychiatrist: Name: Dr. Alessandro Charles [facility] Date of Appointment: Sep 14, 2017 Time of Appointment: 10:45 am Appointment Notes: [address] [facility] [place] [id number] Therapist: Name: Radha DODD Melvin Woodard Date of Appointment: Sep 08, 2017 Time of Appointment: 1:00 pm Appointment Notes: [address] [facility] [address] Project Management Specialist: Name: Charmaine Jeronimo or [phone] Time of Appointment: weekly Hotbed Lever Operator: Name: Kimberlyn Torres Appointment Notes: scheduled 6 hours per month Visit Code E&M Code: 81559 Inventory Assets Strengths: Supportive family, has outpatient providers, willing for treatment Needs: Increased living supports (personal longterm), improved compliance with medications and understanding of the need for higher doses of medications to target her symptoms Risk Factors Assessment : Yes /single/: Yes Higher / Fall in social status: No Health problems: Yes Mental Health Diagnoses: Yes Substance use disorders: No Previous attempt: Yes Previous attempt;highly lethal: Yes Family history of suicide: Yes Previous psychiatric stay: Yes Hopelessness: Yes Smoker: No Protective Factors Assessment Catholic beliefs: Yes : No Responsible for young children: No Employed: No Stable relationships: Yes Supportive family: Yes Good rapport with provider: Yes Data Vital Signs Last 24 Hrs: Date Time Temp Pulse Resp B/P (MAP) Pulse Ox O2 Delivery O2 Flow Rate FiO2 09/07/17 06:43 36.6 93 16 144/90 92 137/83 Meds Administered Last 24 Hrs: Meds Administered (Past 24Hrs) Medications (Trade) Dose Ordered Sig/Fadi Route Start Time Stop Time Status Last Admin Dose Admin Nystatin (Mycostatin Crm) 1 appln DAILY PRN EXT 09/05/17 10:45 10/05/17 10:44 09/06/17 14:11 1 APPLN Lab Results Last 24 Hrs: Last 24 Hours Test 09/06/17 16:17 09/07/17 07:46 09/07/17 07:50 Bedside Glucose 126 mg/dl 161 mg/dl White Blood Count 9.00 K/uL Red Blood Count 4.51 M/uL Hemoglobin 13.9 g/dL Hematocrit 40.5 % Mean Corpuscular Volume 89.8 fL Mean Corpuscular Hemoglobin 30.8 pg Mean Corpuscular Hemoglobin Concent 34.3 g/dl Platelet Count 296 K/uL Mean Platelet Volume 9.6 fL Neutrophils (%) (Auto) 65.1 % Lymphocytes (%) (Auto) 23.1 % Monocytes (%) (Auto) 9.0 % Eosinophils (%) (Auto) 2.1 % Basophils (%) (Auto) 0.4 % Neutrophils # (Auto) 5.85 K/uL Lymphocytes # (Auto) 2.08 K/uL Monocytes # (Auto) 0.81 K/uL Eosinophils # (Auto) 0.19 K/uL Basophils # (Auto) 0.04 K/uL RDW Standard Deviation 45.7 fL RDW Coefficient of Variation 14.0 % Immature Granulocyte % (Auto) 0.3 % Immature Granulocyte # (Auto) 0.03 K/uL
[2017-09-07] MEDS: MAGNESIUM HYDROXIDE SUSP 30 ML UDC PO PRN (09:13)
[2017-09-07] MEDS: GLIMEPIRIDE 2 MG TAB PO SCH (09:13)
[2017-09-07] MEDS: PANTOprazole SOD 40 MG TAB PO SCH (09:13)
[2017-09-07] MEDS: NYSTATIN CR 15 GM TUBE EXT PRN (09:44)
[2017-09-07] MEDS: LORAZEPAM 1 MG TAB PO SCH ×2 (12:11→22:07)
[2017-09-07] MEDS: NAPROXEN 250 MG TAB PO PRN ×2 (12:11→22:25)
[2017-09-07] MEDS: CLOZAPINE 100 MG TAB PO SCH (22:07)
[2017-09-07] MEDS: MONTELUKAST SOD 10 MG TAB PO SCH (22:10)
[2017-09-07] MEDS: TRAZODONE HCL 100 MG TAB PO SCH (22:10)
[2017-09-07] MEDS: SIMVASTATIN 40 MG TAB PO SCH (22:10)
[2017-09-07] MEDS: SERTRALINE HCL 50 MG TAB PO SCH (22:11)
[2017-09-08 07:00] VITALS: BP_SYST 139; BP_SYST 147; BP_DIAS 82; BP_DIAS 83; PULSE 79; PULSE 86; TEMP 36.5
[2017-09-08] MEDS: LEVOTHYROXINE 100 MCG TAB PO SCH (07:55)
[2017-09-08] MEDS: PANTOprazole SOD 40 MG TAB PO SCH (08:31)
[2017-09-08] MEDS: GLIMEPIRIDE 2 MG TAB PO SCH (08:31)
[2017-09-08] MEDS ORDERED: CLZ100 PO (09:00)
[2017-09-08] MEDS ORDERED: NPR250 PO (09:00)
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
--- NOTE | 2017-09-08 09:19 | Psychiatric Progress Notes ---
Psychiatric Progress Note Date of Service Sep 08, 2017. Notes Patient seen face to face. Patient is in need of halfway and home health aide to assist with medication management and ADL's. Presents with unstable gait, uses walker to ambulate and is at risk of falls getting in and out of the shower.
== END 2017-09-08 11:30 | disposition home health service (06) | DRG 885 ==
LOC: C.EDB 15:00 → C.MHU 18:28 → ENRESERV 18:50
PROVIDERS: ADMIT Psychiatry & Neurology Psychiatry; ATTEND Psychiatry & Neurology Psychiatry
DX: F25.9 Schizoaffective disorder, unspecified (principal); R45.851 Suicidal ideations; Z68.43 Body mass index [BMI] 50.0-59.9, adult; R26.89 Other abnormalities of gait and mobility; B36.9 Superficial mycosis, unspecified; F41.9 Anxiety disorder, unspecified; E11.9 Type 2 diabetes mellitus without complications; E78.00 Pure hypercholesterolemia, unspecified; K21.9 Gastro-esophageal reflux disease without esophagitis; E03.9 Hypothyroidism, unspecified; G47.33 Obstructive sleep apnea (adult) (pediatric); E66.9 Obesity, unspecified; Z79.899 Other long term (current) drug therapy; Z79.84 Long term (current) use of oral hypoglycemic drugs; Z91.81 History of falling; Z91.5 Personal history of self-harm; Z81.8 Family history of other mental and behavioral disorders; Z81.1 Family history of alcohol abuse and dependence

== ENCOUNTER → 2017-09-24 | Outpatient (CLI) | payer OTHER ==
[~2017-09-24] MED LIST changes: -ALBUAER2 INH; -BENZ-88 PO; -CALC600T9 PO; -GLC850 PO; +GLIM1TAB2 PO; +LEVO100T7 PO; -LEVO88TA3 PO; -LORA-741 PO; -MULTTAB58 PO; +NPR250 PO; -SENNTAB23 PO; -SERT-234 PO; -THIA1TAB11 PO
[2017-09-24 12:34] LABS: BLOOD UREA NITROGEN 12 mg/dl (7-18); CALCIUM 9.1 mg/dl (8.5-10.1); CARBON DIOXIDE 29 mmol/L (21-32); GLUCOSE 98 mg/dl (70-99); POTASSIUM 4.6 mmol/L (3.5-5.1); SODIUM 129 mmol/L (136-145)
[2017-09-24 12:36] LABS: HEMOGLOBIN A1C 7.1 % (4.5-5.6)
[2017-09-24 18:33] LABS: CREATININE RANDOM URINE 25.7 mg/dl
== END | disposition home or self-care (01) ==
LOC: C.LABBFT 10:56
PROVIDERS: ATTEND Physician Assistant
DX: E11.21 Type 2 diabetes mellitus with diabetic nephropathy (principal); I10 Essential (primary) hypertension

== ENCOUNTER → 2017-10-05 | Outpatient (CLI) | payer OTHER | END | disposition home or self-care (01) | LOC: C.LAB1850 13:00 | PROVIDERS: ATTEND Physician Assistant | DX: E11.9 Type 2 diabetes mellitus without complications (principal); E03.9 Hypothyroidism, unspecified; R80.9 Proteinuria, unspecified; I10 Essential (primary) hypertension ==